=== PATIENT | female | born 1995 | race Caucasian/White ===

== ENCOUNTER 2017-03-30 15:55 | Inpatient (IN) | payer OTHER ==
[~2017-03-30] VITALS: Ht 152.4 cm; Wt 90.4 kg
[2017-03-30 16:02] VITALS: BP 128/75; PULSE 122; RESP 18; O2SAT 97
--- NOTE | 2017-03-30 18:37 | ED.REPORT ---
HPI-General Illness Date of Service Mar 30, 2017 ED Provider: Matheus Santiago DO Pt is a 21 year old female with a history of type I diabetes who presents to the ED complaining of rectal pain onset 6 days ago. She c/o associated fever and nausea. She denies vomiting and any other symptoms. Per pt, she presented to [facility] in the ED was diagnosed with pilonidal cyst for which she was prescribed Amoxicillin without relief. Nursing Notes Stated Complaint: PILANIDAL CYST, NAUSEA Chief Complaint: Skin Rash/Abscess Nursing Notes Reviewed: Yes Allergies: Coded Allergies: codeine (Verified Adverse Reaction, Severe, Nausea,Vomiting, 03/31/17) oxycodone (Verified Adverse Reaction, Intermediate, Nausea,Vomiting, ) Scheduled Amoxicillin/Clav K 875-125 mg (Augmentin 875-125 mg) 1 Each Tablet 1 TABLET PO BID Insulin Glargine,Hum.rec.anlog (Toujeo Solostar) 300 Unit/Ml (1.5 Ml) Insuln.pen Unknown Dose SQ HS Insulin Regular, Human (Afrezza) 8 Unit (60)/12 Unit (30) Cart.w.dev 1 EACH IH TIDWM Scheduled PRN Hydrocodone-Acetaminophen 5-325 mg (Hydrocodone-Acetaminophen 5-325 mg) 1 Each Tablet 1 TABLET PO Q3H PRN PRN For Pain General Time Seen by MD: 18:31 Chief Complaint Other (Pilanidol abscess) Hx Obtained From: Patient Arrived By: Walk-in Sudden in Onset?: No Onset Occurred: 6 days ago Symptom Duration: Since onset Quality: Painful Severity: Current: Moderate Severity: Maximum: Moderate Recent Healthcare: Recent doctor visit Similar Sx Previous: Yes Past Medical History Past Medical History Pilonidal abscess Type I Diabetes Mellitus Past Surgical History Denies Smoking History Current Every Day Smoker Social History Alcohol Use: "Social" Drug Use: Denies drug use Other Social History: Good social support Ambulatory Status Independent Review of Systems + abscess Full Review of Systems Constitutional: Reports: Fever Respiratory: Denies: Non-productive cough GI: Reports: Nausea, Denies: Vomiting Complete sys rev & neg: except as marked. Physical Exam Vital Signs Vital Signs Date Time Temp Pulse Resp B/P Pulse Ox O2 Delivery O2 Flow Rate FiO2 03/30/17 16:02 36.5 122 18 128/75 97 Room Air Initial VS: Reviewed Head / Eyes: Atraumatic, Normocephalic Neck: Supple, Full range of motion Abdomen / GI: Soft, Non-tender Extremities: Vascular intact, Neuro intact Skin: Warm, Dry, No cyanosis Neurologic: Alert, Oriented, Nonfocal Psychiatric: Mood/affect normal, Behavior normal General/Constitutional: Awake, Alert, Cooperative, Not toxic appearing Distress / Hydration: Positive: Distress moderate Cardiovascular: Regular rhythm, Heart sounds NL Heart Rate / Rhythm: Positive: Tachycardia RECTUM: [place] of glutial cleft bilaterall, abscess on the right side with induration. Interpretation & Diagnostics Lab Results Interpretation Result Diagram: 03/30/17 1831 03/30/17 1831 Test 03/30/17 18:31 White Blood Count 13.5th/mm3 (3.8-10.1) Red Blood Count 5.47mil/mm3 (3.90-5.20) Hemoglobin 9.9g/dL (12.0-15.6) Hematocrit 33.0% (35.0-46.0) Mean Corpuscular Volume 60.3fL (81-100) Mean Corpuscular Hemoglobin 18.1pg (27.0-35.0) Mean Corpuscular Hemoglobin Concent 30.0% (32.0-37.0) Red Cell Distribution Width 17.2% (12.3-15.4) Platelet Count 378bil/L (150-400) Neutrophils (%) (Auto) 67.7% (40-74) Lymphocytes (%) (Auto) 22.2% (14-46) Monocytes (%) (Auto) 7.1% (4-12) Eosinophils (%) (Auto) 2.4% (0-5) Basophils (%) (Auto) 0.3% (0-3) Sodium Level 133mEq/L (134-144) Potassium Level 4.2mEq/L (3.5-5.2) Chloride Level 96mEq/L (97-108) Carbon Dioxide Level 22mmol/L (18-29) Blood Urea Nitrogen 8mg/dL (6-20) Creatinine 0.42mg/dL (0.57-1.00) Estimat Glomerular Filtration Rate 278mL/min (>59) Glucose Level 284mg/dL (60-99) Lactic Acid Level 1.4mmol/L (0.4-2.0) Calcium Level 9.6mg/dL (8.5-10.1) Total Bilirubin 0.2mg/dL (0.0-1.2) Aspartate Amino Transf (AST/SGOT) 12U/L (0-50) Alanine Aminotransferase (ALT/SGPT) 13U/L (0-32) Alkaline Phosphatase 86U/L (25-150) Total Protein 7.2g/dL (6.4-8.4) Albumin 3.5g/dL (3.4-5.0) Hold Arizmendi Top Tube Received (Received) Re-Eval/Medical Decision Med Decision/Clinical Course 21-year-old insulin-dependent diabetic presents with fever and worsening gluteal cleft cellulitis. She has been on on antibiotics for 48 hours without improvement. She is found to have a leukocytosis as well as induration consistent with cellulitis of the gluteal cleft. No appreciable abscess. Due to the fact that she has been on oral antibiotics and there is nothing that I can incise and drain will admit her for IV antibiotics. Source of Hx: Old records Time of Eval: 18:31 Re-Evaluation/Progress Note: Pt rechecked. Informed pt of plan for admission. Pt understands and agrees with plan for admission. All questions were answered. Counseled Regarding: Diagnosis, Lab results, Need for admission Discharge & Departure Primary Impression: Cellulitis, gluteal Additional Impressions: Diabetes Diabetes mellitus type: type 1 Diabetes mellitus complication status: with hyperglycemia Qualified Code: E10.65 - Type 1 diabetes mellitus with hyperglycemia Failure of outpatient treatment Disposition: ADMITTED TO HOSPITAL Discharge Condition All VS Reviewed: Yes Condition: Stable Referrals: [facility] Scribe Attestation Portions of this note were transcribed by Ivanna Corcoran. I, Dr. Santiago personally performed the history, physical exam and medical decision-making; I reviewed and confirmed the accuracy of the information in the transcribed note. Signed by: Pasquale Martinez, 03/30/17 and 21:50. copies to: [facility] Matheus Santiago DO Mar 30, 2017 18:37 Ivanna Luz Mar 30, 2017 21:33
[2017-03-30 18:46] LABS: BASOPHILS % (AUTO) 0.3 % (0-3); EOSINOPHILS % (AUTO) 2.4 % (0-5); MONOCYTES % (AUTO) 7.1 % (4-12); Mean Corpuscular Hemoglobin 18.1 pg (27.0-35.0); Mean Corpuscular Volume 60.3 fL (81-100); NEUTROPHILS % (AUTO) 67.7 % (40-74); Platelet Count 378 bil/L (150-400)
[2017-03-30] MEDS ORDERED: Piperacillin-Tazo 3.375 Gm Inj 3.375 GM in Dextrose 5% Minibag Plus 50 ML IV ONE (18:50)
[2017-03-30] MEDS ORDERED: Lidocaine 1% 50 mL Inj NERVEBLOCK ONE (18:50)
[2017-03-30] MEDS: HYDROmorphone 0.5 mg/0.5 mL iSecure Syringe IVPUSH PRN ×3 (19:20→23:51)
[2017-03-30] MEDS ORDERED: Vancomycin Inj 1,750 MG in Dextrose 5% 500 ML IV ONE (19:20)
[2017-03-30 20:54] VITALS: BP 122/70; PULSE 98; RESP 14; O2SAT 97
[2017-03-30] MEDS ORDERED: Alum-Mag Hydrox-Simeth 30 mL Suspension PO PRN (23:15)
[2017-03-30] MEDS ORDERED: Polyethylene Glycol (PEG) 17 Gm Powder PO PRN (23:15)
--- NOTE | 2017-03-30 23:18 | PCM.HPMED ---
Subjective Date of Service Mar 30, 2017 Primary Provider: Admitting Physician: Piper Loomis DO Primary Care Physician: Other,Physician Attending Physician: Piper Loomis DO Admit Status: From the Emergency Department Chief Complaint: lower back pain History of Present Illness: 21yoF with past medical history of type 1 diabetes admitted due to outpatient treatment failure of lower back / pilonidal cyst cellulitis. Patient states that she began having discomfort in her superior gluteal cleft about 5 days ago and was seen in [place] for this concern. She was diagnosed with cellulitis and given amoxicillin as per patient and sent home. She has not improved but in fact worsened with fevers up to 103 yesterday 03/30. Due to concern for worsening pain and symptoms patient was brought to the ED by her mother for further evaluation. Patient's mother notes that patient has not been taking insulin regularly and has not taken it in the past few days. 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 She is afraid of needles and doesn't consistently take her insulin with blood glucoses ranging in the 400-700 range regularly with recent a1c in the 11 range. While she is aware of the issues associated with diabetes (grandmother of renal dysfunction recently 2/2 diabetes) she continues to show little concern about managing her diabetes appropriately. On admission patient is meeting sepsis criteria with heart rate of 122 and WBC > 12. Review of Systems: complete review of systems obtained. positive as per hpi otherwise negative. Allergies Uncoded Allergies: CODEIN (Allergy, Unknown, 03/30/17) Home Medications Medication rec pending. Medication list not available on admission. PMH Pilonidal abscess Type I Diabetes Mellitus Surgical History None Family History Strong family history of diabetes both type 1 and type 2 Social History Hx Alcohol Use: Yes (socially) Hx Substance Use: No Smoking Status: Current Every Day Smoker Exam Vital Signs Vital Sign - Last Date Time Temp Pulse Resp B/P Pulse Ox O2 Delivery O2 Flow Rate FiO2 03/30/17 20:54 36.8 98 14 122/70 97 Room Air Exam General: Alert, Oriented X3, Cooperative, No acute Distress Eyes: PERRLA, Scleral Anicteric Mouth: Mouth Normal, Mucous Membranes Moist/[place] Neck: Supple, no Thyromegaly, trachea central. Chest & Lungs: clear to auscultation bilateral, no wheezes, rales, rhonchi, good resp effort Cardiovascular: Normal S1, Normal S2, No Rubs/Gallops, regular rhythm, tachy ( No JVD, no peripheral edema) Pulses: Radial (present and equal), Dorsalis Pedi (present and equal) Abdomen: Soft, Non-tender, Non-distended, Normoactive bowel tones. Musculoskeletal: Unremarkable. Normal range of motion, no swollen or erythematous joints Extremities: No edema, no cyanosis, no clubbing. Skin: erythema and induration of the gluteal cleft, not obvious area of fluid collection Neurological: Grossly neurologically intact, has generalized weakness, Normal Speech, Sensation Intact Lymphatic: Lymph nodes Cervical and Axillary not palpable. Lab and Diagnostics Result Diagram: 03/30/17183003/30/171830 Assessment & Plan 21yoF with past medical history of type 1/2 diabetes admitted due to outpatient treatment failure of lower back / pilonidal cyst cellulitis. Patient does meet sepsis criteria on admission however she remains stable. Sepsis, acute, POA -HR >90, WBC >12 -source pilonidal cyst associated cellulitis -ED started piperacillin-tazobactam and vancomycin, will continue, pharmacy to dose vanc -MRSA screen Pilonidal cyst associated cellulitis, acute, POA -failure of outpatient treatment PO abx -consideration to imaging area however doesn't appear to have fluid collection, US if not improved -continue abx as above -oxycodone 5mg q4hr PRN, morphine PRN breakthrough pain, bowel regimen Hyponatremia, acute, POA -mild -continue to monitor Anemia, unknown chronicity -likely secondary to menses -continue to monitor Tobacco dependence, chronic -nicotine patch made available upon request Type 1/2 diabetes, uncontrolled, chronic, POA -hgbA1c pending, per patient's mother hgbA1c ranges around 11 -SSI, will order insulin when med rec is complete -diabetic diet -diabetes education Pain Evaluation: Adequate Pain Control GI Prophylaxis: Not indicated VTE Prophylaxis: Sub-Q Heparin (Unfractionated), Other (ambulate, TID) Resuscitation Status: CPR: Attempt Resuscitation Piper Loomis DO Mar 30, 2017 23:18
[2017-03-30] MEDS ORDERED: Glucose 40% Oral Gel 15 Gm Tube PO PRN (23:30)
--- NOTE | 2017-03-30 23:30 | NUR ---
Admit Received report from Jie MOREJON RN @ 2039,pt arrived floor at this time accompanied by mother, ind to bed ,Dx cellulitis failed by PO antibiotic,received 1 dose Vanco in ER,Admission complete, plan and orientation to room discussed, mother will spend the night. Addendum: 03/31/17 at 0411 by MARCO BUSH RN MD here to assess, per note patient meets sepsis protocol 1L NS bolus given followed continuos @100cc/hr.
[2017-03-31] VITALS (20 sets, daily range): BP systolic 102–142; BP diastolic 46–92; PULSE 78–126; RESP 16–26; O2SAT 90–98
[2017-03-31] MEDS ORDERED: 0.9% Sodium Chloride 1,000 ML IV ONE (01:00)
[2017-03-31] MEDS ORDERED: Polyethylene Glycol (PEG) 17 Gm Powder PO PRN (01:05)
[2017-03-31] MEDS ORDERED: Piperacillin-Tazo 3.375 Gm Inj 3.375 GM in Dextrose 5% Minibag Plus 50 ML IV SCH (01:10)
[2017-03-31] MEDS ORDERED: Vancomycin Dose per Pharmacist XX SCH (01:10)
[2017-03-31] MEDS ORDERED: INSU1CAR IH (01:36)
[2017-03-31] MEDS ORDERED: INSU300I SQ (01:36)
[2017-03-31] MEDS ORDERED: HYDR-4003 PO (01:37)
[2017-03-31] MEDS ORDERED: AMOX-366 PO (01:37)
[2017-03-31] MEDS: 0.9% Sodium Chloride 1,000 ML IV SCH ×6 (02:14→20:55)
[2017-03-31] MEDS: Piperacillin-Tazo 3.375 Gm Inj 3.375 GM in Dextrose 5% Minibag Plus 50 ML IV SCH ×3 (03:10→22:51)
[2017-03-31] MEDS ORDERED: Vancomycin Inj 750 MG in 0.9% Sodium Chloride 250 ML IV SCH (04:00)
--- NOTE | 2017-03-31 04:15 | PCM.CONPHA ---
Subjective Date of Service: Mar 31, 2017 Requesting Provider: Piper Loomis DO lower back pain History of Present Illness Sepsis, 2/2 pilonidal abscess/cellulitis, failed outpatient antibiotic Reason for Pharmacy Consult: Vancomycin Dosing Objective Assessment/Plan Assessment/Plan A/ - 21 y/o female patient admitted in for sepsis, secondary to pilonidal abscess/cellulitis which failed outpatient antibiotic. Vancomycin ordered for empirical coverage - Afebrile, WBC: 13.5, blood cultures and MRSA screen: pending - In ED, received loading dose Vancomycin 1750mg, Zosyn also initiated and continued - Wt: 84.6kg, ht: 152.4cm, BMI: 36.4kg/m2, SCr: 0.45 mg/dL, estimated clearance >125ml/min, Vd~51L, t1/2~6hrs P/ - Give Vancomycin 750mg iv q6h. Trough level ordered before 4th dose @1530 today. This regimen would produce a trough around 15 Pharmacy will continue to follow and make necessary adjustment Thank you for consulting clinical pharmacy in the care of this patient Colleen Kelly Mar 31, 2017 04:15 Test 03/30/17 18:31 White Blood Count 13.5th/mm3 (3.8-10.1) Red Blood Count 5.47mil/mm3 (3.90-5.20) Hemoglobin 9.9g/dL (12.0-15.6) Hematocrit 33.0% (35.0-46.0) Mean Corpuscular Volume 60.3fL (81-100) Mean Corpuscular Hemoglobin 18.1pg (27.0-35.0) Mean Corpuscular Hemoglobin Concent 30.0% (32.0-37.0) Red Cell Distribution Width 17.2% (12.3-15.4) Platelet Count 378bil/L (150-400) Neutrophils (%) (Auto) 67.7% (40-74) Lymphocytes (%) (Auto) 22.2% (14-46) Monocytes (%) (Auto) 7.1% (4-12) Eosinophils (%) (Auto) 2.4% (0-5) Basophils (%) (Auto) 0.3% (0-3) Sodium Level 133mEq/L (134-144) Potassium Level 4.2mEq/L (3.5-5.2) Chloride Level 96mEq/L (97-108) Carbon Dioxide Level 22mmol/L (18-29) Blood Urea Nitrogen 8mg/dL (6-20) Creatinine 0.42mg/dL (0.57-1.00) Estimat Glomerular Filtration Rate 278mL/min (>59) Glucose Level 284mg/dL (60-99) Lactic Acid Level 1.4mmol/L (0.4-2.0) Calcium Level 9.6mg/dL (8.5-10.1) Total Bilirubin 0.2mg/dL (0.0-1.2) Aspartate Amino Transf (AST/SGOT) 12U/L (0-50) Alanine Aminotransferase (ALT/SGPT) 13U/L (0-32) Alkaline Phosphatase 86U/L (25-150) Total Protein 7.2g/dL (6.4-8.4) Albumin 3.5g/dL (3.4-5.0) Hold Arizmendi Top Tube Received (Received) Colleen Jain Mar 31, 2017 04:15 Received (Received) Colleen Jain Mar 31, 2017 04:15
[2017-03-31] MEDS: Ondansetron 2 mg/mL 2 mL Inj IVPUSH PRN ×4 (04:55→12:05)
[2017-03-31 07:26] LABS: BASOPHILS % (AUTO) 0.2 % (0-3); MONOCYTES % (AUTO) 6.6 % (4-12); Mean Corpuscular Hemoglobin 18.3 pg (27.0-35.0); Mean Corpuscular Volume 60.6 fL (81-100); NEUTROPHILS % (AUTO) 81.1 % (40-74); Platelet Count 343 bil/L (150-400)
[2017-03-31] MEDS: Insulin LISPRO 300 Unit/3 mL Inj SUBQ SCH ×4 (07:38→23:09)
[2017-03-31] MEDS ORDERED: Insulin GLARgine 100 Unit/mL Syringe SUBQ ONE (07:50)
--- NOTE | 2017-03-31 08:20 | NUR ---
Social Work: Screening Data: Pt is a 21 y/o female admitted for cellulitis, leukocytosis, diabetes. Pt's PCP is not listed. Pt's insurance is [employer] EMR reviewed. Readmit score is 2, low. Likely no d/c planning needs. [employer]PER [employer]ER will continue to follow for possible d/c planning needs. Assessment: Pt who is independent at baseline. Plan: Pt will d/c home via POV when medically stable. Likely no d/c planning needs. [employer] will continue to follow for possible d/c planning needs. ISAAC Brock
[2017-03-31] MEDS: HYDROmorphone 1 mg/mL Inj IVPUSH PRN ×3 (08:54→23:54)
--- NOTE | 2017-03-31 10:14 | NUR ---
Morning assessment/transfer of care Pt nauseas and in pain 8/10 this morning. Vitals show elevated HR and temp of 120 BPM and 37.9 C. MD present in the room and 1L bolus ordered and administered. Transfer orders to PCC received. 1MG dilaudid and 4 mg ondansetron given which brought pts. pain down to 4/10 and helped her nausea. PO tylenol brought temp down to 36.8. Dr. Chris in the room at 0930 to consult, followed by infectious disease. Transferred to [facility] at 0950 in stable condition. Report given to Fransisco Chowdary RN. prior to transfer.
[2017-03-31] MEDS ORDERED: Propofol 10,000 mCg/mL 20 mL Inj ONE (10:20)
[2017-03-31] MEDS ORDERED: Dexamethasone 4 mg/mL Inj ONE (10:20)
[2017-03-31] MEDS ORDERED: Ondansetron 2 mg/mL 2 mL Inj ONE (10:20)
[2017-03-31] MEDS ORDERED: fentaNYL-PF 50 mCg/mL 2 mL Inj ONE (10:20)
--- NOTE | 2017-03-31 11:02 | CONS ---
[address] [address] CONSULTATION REPORT PATIENT: JENN COX : 1995 MR#: [id number] ADMIT: 03/30/2017 JOB ID: [id number] DATE OF SERVICE: 03/31/2017 REASON FOR CONSULTATION: Pilonidal cyst in a type [address] Coreas for this timely consult, which occurred on March 31, 2017. HISTORY OF PRESENT ILLNESS: The patient is a 21-year-old, white female, who was diagnosed with type 1 diabetes a couple years ago. She has not been super compliant with her diabetes and tends to have variable control. She has had 2 episodes of hidradenitis in the groin over the past few years, but none recently. On this occasion she was admitted because of a 5-day history of pain in the upper gluteal cleft region. This pain has been progressive and debilitating. She has not vomiting or diarrhea, but she has had some nausea, fevers, chills, and malaise. No significant headache. No visual change. No sore throat. No pulmonary complaints. No urinary symptoms. PAST MEDICAL HISTORY: 1. Type 1 diabetes x2 years. 2. Hidradenitis on two occasions in the past. 3. Ongoing cigarette smoking. SOCIAL HISTORY: The patient is a recent graduate of [employer] and also has completed most of an associates degree from [employer]. She does smoke cigarettes, and she was strongly advised to quit at this time. She does not drink alcohol. FAMILY HISTORY: Negative for tuberculosis, but her grandmother does have diabetes. REVIEW OF SYSTEMS: The patient has no significant headache or visual change. No sore throat. No cough, chest pain. She does have some nausea. No vomiting. No diarrhea. No dysuria, urgency, or frequency. No more of the hidradenitis in the groin. No complaints of joint or skin problems. No neurologic symptoms.Remainder of the ROS negative PHYSICAL EXAMINATION: Reveals an afebrile woman, currently 37.9 but she was 38.8 at midnight and recall that she was admitted just yesterday afternoon, so the 38.8 was her highest temperature. Pulse is currently 120, respiratory rate 16, blood pressure 139/92. She is saturating well on room air. She is awake, alert, no acute distress and appears perhaps a bit anxious. Examination of the head: No trauma. Eyes without conjunctivitis. Oral cavity: No thrush or hairy leukoplakia. Neck is supple without adenopathy. Lungs clear. Cardiac tones: No murmur. Abdomen is soft, nontender, slightly obese. No masses noted. No suprapubic fullness. No evidence of hidradenitis at this point. Extremities are without synovitis. No skin rash. Neurologically she is intact. On the patient's backside she has tender erythematous inflammatory area along the upper gluteal cleft, which is slightly bigger on the right than the left and extends 2-3 cm into the buttocks arising from the gluteal cleft on both sides. There is no purulent drainage at this point, and the inflammatory mass is basically closed at this point, but clearly quite tender and warm. No other notable abnormalities on physical. LABORATORIES: Include white blood count yesterday in the emergency department 13, now 16. Platelets 343. Hematocrit 32. Differential white count with mild left shift today. Creatinine 1.34 up from 0.42 yesterday which is a striking increase. Glucose 286. Hemoglobin A1c is not seen. Lactic acid 1.4. LFTs normal. Procalcitonin 0.09 which is functionally normal. Micro studies include negative blood cultures. A MRSA screen is pending and would be very helpful here and was just sent down about an hour ago. IMPRESSION: This is a young woman with type 1 diabetes who is a cigarette smoker and who presents with a pilonidal cyst. While not strictly associated with hidradenitis this probably represents some continuum on the same process. At this point, we have discussed the case in person with Dr. Erin Chris of Surgery who plans to get an ultrasound and slightly better control the blood sugar before she takes her to the operating room later today. Dr. Chris or one of her colleagues will be doing this incision and drainage. The patient was started on vancomycin and Zosyn, which is a nephrotoxic regimen. The patient has no history of methicillin resistant Staphylococcus aureus, and I do not think at this point that the vancomycin makes sense unless perhaps her methicillin resistant Staphylococcus aureus screen comes back positive. The main treatment for this infection will be incision and drainage and broad-spectrum antibiotics directed at enteric gram-negative rods and anaerobes. Methicillin resistant Staphylococcus aureus would not be typical player in the source of infection, and I think it is contributing to the synergistic toxicity when combined with the Zosyn. RECOMMENDATIONS: 1. Will discontinue the vancomycin. 2. Will renally adjust the Zosyn if need be as we go forward. 3. We await the incision, drainage, and cultures to be performed later today. 4. The patient was advised to quit smoking. MTDD
[2017-03-31] MEDS ORDERED: Insulin Human REGular Inj 100 UNIT in 0.9% Sodium Chloride-Pha MIX 100 ML IV ONE (11:40)
[2017-03-31] MEDS: HYDROcodone-APAP 5-325 mg Tablet PO PRN (12:05)
[2017-03-31 12:50] LABS: BASOPHILS % (AUTO) 0.2 % (0-3); EOSINOPHILS % (AUTO) 0.7 % (0-5); MONOCYTES % (AUTO) 8.9 % (4-12); Mean Corpuscular Hemoglobin 18.5 pg (27.0-35.0); Mean Corpuscular Volume 60.6 fL (81-100); NEUTROPHILS % (AUTO) 76.6 % (40-74); Platelet Count 311 bil/L (150-400)
--- NOTE | 2017-03-31 12:57 | PCM.PNMED ---
Subjective Date of Service Mar 31, 2017 Subjective pt was in distress due to pain, sepsis, noted febrile episode business consultant, tachycardic, labs showed persistent leukocytosis, developing LIN, increasing AG, elevated [id number] with probable DKA Consulted , ordered CT with contrast but switched to US given LIN tentative plan for drainage by US by IR or surgery today kept in NPO given worsening clinical picture, moved to [facility] for close obs, ordered 2liters of NS Exam Vital Signs Vital Sign - Last Date Time Temp Pulse Resp B/P Pulse Ox O2 Delivery O2 Flow Rate FiO2 03/31/17 12:38 115 03/31/17 10:25 36.4 18 129/88 90 Room Air Intake and Output 03/30/17 03/30/17 03/31/17 Cumulative From/Thru 15:00 23:00 07:00 03/30/17 16:02 - 03/31/17 06:16 Intake Total 550 ml 2011 ml 2561 ml Output Total 250 ml 250 ml Balance 550 ml 1761 ml 2311 ml Intake Oral 360 ml 360 ml IV Total 550 ml 1651 ml 2201 ml Output Urine Total 250 ml 250 ml Exam young obese female acute distress due to pain, looked ill no JVD, MMM, no LAD regular tachy, nl s1, s2 no mrg CTAB, no w,c S,ND,NT,normoactive BS+ warm, no edema, pulses 2/2 severe tender, erythema,swelling around intergluteal cleft bilaterally below sacrum, no obvious opening/fluctence IVs and Medications Medications Reviewed: Medications were reviewed in detail Lab and Diagnostics Result Diagram: 03/31/1730 03/31/17 0630 Assessment & Plan 21yoF with past medical history of type 1/2 diabetes admitted due to outpatient treatment failure of lower back / pilonidal cyst cellulitis. Patient does meet sepsis criteria on admission however she remains stable. acute,active Sepsis, SIRS+HR >90, WBC >12, fever, RR, source: probable pilonidal cyst associated cellulitis, -failure of outpatient Augmentin for 5D -appreciate for surgical drainage, awaits US if possible to drain by IR -ED started piperacillin-tazobactam and vancomycin, continue zosyn, stopped vancomycin 03/31 per ID, MRSA neg, no risks of MRSA infection. -appreciate ID follow up for abx -s/p 2-3liters bolus, will continue 100cc/hr -oxycodone 5mg q4hr PRN, morphine PRN breakthrough pain, bowel regimen -awaits BCX AG metabolic acidosis, POA, likely lactate or ketosis with [id number]. -started DKA protocol in PCC, likely to stop shortly -will repeat labs q4-6h Type 1DM, hyperglycemia, probable DKA, POA, noncompliant, reported A1c11 -manage per DKA protocol as above, -was given 5units of lantus this AM, -reportedly pt is afraid of needing, not complaint to pre-meal insulin, try to minimize needling with lantus in house, -diabetic diet, diabetes education chronic, stable Anemia, unknown chronicity, likely secondary to menses, will need iron on d/c, get iron panel once more stable Tobacco dependence, chronic, nicotine patch made available upon request dispo: likely 3-4more days, home diet:NPO for now GI Prophylaxis: Not indicated VTE Prophylaxis: Sub-Q Heparin (Unfractionated), Other (ambulate, TID) Resuscitation Status: CPR: Attempt Resuscitation Time spent 35min Mile Coreas MD Mar 31, 2017 12:57
[2017-03-31 13:21] LABS: Magnesium 1.4 mg/dL (1.6-2.6); Phosphorus 5.4 mg/dL (2.5-4.9)
--- NOTE | 2017-03-31 13:59 | DRSVH ---
PROCEDURE: US EXTREMITY SONOGRAM LIMITED ([id number]) INDICATIONS: possible abscess on proximal gluteal cleft TECHNIQUE: Real-time scanning was performed of the midline gluteal cleft, with image documentation. COMPARISON: None. FINDINGS: Complex, multiloculated mass is seen corresponding to the palpable abnormality involving th e gluteal cleft measuring roughly 2.5 x 2.2 cm. Doppler assessment demonstrates some internal flow. IMPRESSION: Complex, multiloculated cystic mass corresponding to the palpable abnormality. Different ial diagnosis would include inflammatory mass versus neoplastic mass given there is internal vascular ity. Recommend clinical correlation. No drainable fluid collection. Dictated by: Tico PERSON Interpreted: Gume Small MD on 03/31/2017 at 13:56 Transcribed by: TARAH on 03/31/2017 at 13:59 Approved by: Gume Small M.D. on 03/31/2017 at 16:27
[2017-03-31] MEDS ORDERED: Vancomycin Serum Trough XX ONE (15:30)
--- NOTE | 2017-03-31 16:22 | CONS ---
[address] [address] CONSULTATION REPORT PATIENT: JENN COX : 1995 MR#: [id number] ADMIT: 03/30/2017 JOB ID: [id number] SURGICAL CONSULTATION: DATE OF SERVICE: 03/31/2017 CHIEF COMPLAINT: This is a 21-year-old female with pain and swelling of the superior gluteal cleft. This consultation is requested by Mile Coreas MD HISTORY OF PRESENT ILLNESS: This is a 21-year-old female with a history of type 1 diabetes, who reports hemoglobin A1c of 11, who presented to the hospital with discomfort at the superior gluteal cleft resulting in worsening pain and fevers to 103 degrees Fahrenheit. She was admitted to the hospital and placed on antibiotics. Because there was no erythema or clear abscess on examination, a CT scan was ordered, but was canceled due to creatinine of 1.34. White blood cell count on admission was 13.5 and fletcher to 15.6 overnight. She has been tachycardic and febrile. Because of all of this, a Surgery consultation was requested. PAST MEDICAL HISTORY: Type 1 diabetes. A self reported hemoglobin A1c is 11. PAST SURGICAL HISTORY: None. MEDICATIONS: Insulin, amoxicillin x3 days, and Vicodin x3 days. ALLERGIES: 1. CODEINE. 2. PENICILLIN causes nausea. FAMILY HISTORY: Her maternal great-grandmother had colon cancer. There is type 2 diabetes, on both sides of her family. Her maternal grandmother had a heart attack. SOCIAL HISTORY: She smokes 10 cigarettes per day, drinks alcohol on a social basis. She does not work or go to school. REVIEW OF SYSTEMS: Eleven point review of systems is positive for fever, nausea, pain, and is otherwise negative. PHYSICAL EXAMINATION: VITAL SIGNS: Temperature 36.4, heart rate 109, blood pressure 129/88, respiratory rate of 18, saturation 90% on room air. GENERAL: Awake and alert, mild distress. HEAD: Normocephalic. NECK: Supple. CARDIAC: Regular rhythm, tachycardia, no murmurs, rubs, or gallops. RESPIRATORY: Clear to auscultation bilaterally. ABDOMEN: Soft. BUTTOCKS: At the superior aspect of the gluteal cleft is a bilateral region of pain with mild induration. Fluctuance is not appreciated. EXTREMITIES: No edema. PSYCHIATRIC: Normal cognition and judgment. LABORATORY DATA: White blood cell count is 15.6, hematocrit 31.8, platelets 343. Comprehensive metabolic panel is within normal limits with the exception of a glucose of 286 and creatinine of 1.34. ASSESSMENT: A 21-year-old woman with likely pilonidal abscess, although purulent collection is not appreciated on physical exam. PLAN: When I originally saw this patient several hours ago, I recommended an ultrasound, which showed a loculated fluid collection. Therefore, she has been scheduled for incision and drainage of the pilonidal abscess on an urgent basis in the operating room. I recommend institution of strict glucose management with all blood sugars to be goal of less than 180. Continue antibiotics per the primary team. Cultures will be sent of the purulent fluid from the OR. A Wound Care consult will be anticipated postoperatively.
[2017-03-31] MEDS ORDERED: Potassium Chloride 20 mEq SR Tablet PO ONE (17:10)
[2017-03-31] MEDS ORDERED: Magnesium Sulf 2 Gm/50mL Water 2 GM in IV Premix 1 EACH IV ONE (17:10)
[2017-03-31 18:59] LABS: APPEARANCE,URINE CLEAR (CLEAR,HAZY); COLOR,URINE YELLOW (YELLOW)
[2017-03-31 19:00] LABS: OCCULT BLOOD,URINE NEGATIVE (NEGATIVE); UROBILINOGEN,URINE NORMAL (NORMAL)
[2017-03-31] MEDS ORDERED: Bupivacaine-MPF 0.25%/EPI 30 mL Inj INFILTRATE ONE (19:24)
--- NOTE | 2017-03-31 19:24 | NUR ---
Transfer to PCC/Insulin gtt/pain Pt arrived on PCC at 09:50, report received from WILIAM Evans. Second bolus started, Only one IV site available, so after discussion with pharmacy, zosyn given over 15 min and then Insulin gtt started. IV therapy contacted to start second line in left arm. Right arm is edematous possibly from existing IV, no overt signs of infiltration, arm warm and IV site warm. Cardiac: Pt reported one brief episode of chest pressure this AM. Resolved on its own. Tele SR 110-120. Edema in upper extremeties, R>L, pt reports her hands are swollen. Resp: Pt reports some SOB with activity and slumped in bed, relieved with positioning. GI/: decreased urine output today, two boluses given since this AM. only 400ml out before going for surgery. Pt had some mild nausea this shift, 4 mg zofran given once with good effect. Neuro: A&O MCKEON. pain regiment has been effective to manage pt's pain.
[2017-03-31] MEDS ORDERED: Lactated Ringer's 500 ML IV PRN (20:07)
[2017-03-31] MEDS ORDERED: Lactated Ringer's 1,000 ML IV SCH (20:07)
[2017-03-31] MEDS ORDERED: MetoCLOpramide 5 mg/mL 2 mL Inj IVPUSH PRN (20:10)
[2017-03-31] MEDS ORDERED: Phenylephrine 10,000 mCg/mL Inj IVPUSH PRN (20:10)
[2017-03-31] MEDS ORDERED: Epinephrine Racemic 2.25% 0.5 mL Inhalation Solution NEB PRN (20:10)
[2017-03-31] MEDS ORDERED: EPHEDrine Sulfate 50 mg/mL Inj IVPUSH PRN (20:10)
[2017-03-31] MEDS ORDERED: Ondansetron 2 mg/mL 2 mL Inj IVPUSH PRN (20:10)
[2017-03-31] MEDS ORDERED: HYDROmorphone 1 mg/mL Inj IVPUSH PRN (20:10)
[2017-03-31] MEDS ORDERED: Dexamethasone 4 mg/mL Inj IVPUSH PRN (20:10)
[2017-03-31] MEDS ORDERED: Albuterol 2.5 mg/3 mL Inhalation Solution NEB PRN (20:10)
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
--- NOTE | 2017-03-31 20:13 | PCM.ANEP1 ---
Post Anesthesia PACU Phase 1 Assessment Vital Signs Vital Signs Date Time Temp Pulse Resp B/P Pulse Ox O2 Delivery O2 Flow Rate FiO2 03/31/17 16:43 38.3 115 26 122/80 93 Room Air 03/31/17 12:38 115 Anesthetic Administered: GA Level of Alertness: Sleepy, easy to arouse Pain: No Pain Scale Score: 9 Nausea or Vomiting: No CV Function & Hydration Stable: Yes Airway Device: Oxygen Delivery: Nasal Cannula Lungs: Clear to Auscultation PACU Phase 2 Assessment Complications: No Follow up Care: No Patient Instructions Provided: Yes Willie Toscano MD Mar 31, 2017 20:13
--- NOTE | 2017-03-31 20:20 | OP ---
[address] [address] OPERATIVE REPORT PATIENT: JENN COX : 1995 MR#: [id number] ADMIT: 03/30/2017 JOB ID: [id number] DATE OF SURGERY: 03/31/2017 PREOPERATIVE DIAGNOSIS(ES): Pilonidal abscess. POSTOPERATIVE DIAGNOSIS(ES): Pilonidal abscess. PROCEDURE PERFORMED: Incision and drainage of pilonidal abscess. SURGEON: Erin Chris MD. VALUE ANALYST: None. HISTORY OF PRESENT ILLNESS: This is a 21-year-old woman with type 1 diabetes with recent hemoglobin A1c documented to be 11, who presented with pain and swelling at the posterior aspect of her gluteal cleft associated with leukocytosis, tachycardia, and acute renal failure. She was admitted to the hospital and pilonidal abscess incision and drainage was scheduled. FINDINGS: Abscess cavity measured 5 cm x 5 cm x 4 cm in depth. It was located at the superior aspect of the gluteal cleft. Purulent fluid sent for culture. DESCRIPTION OF PROCEDURE: The patient was brought to the operating room and placed in supine position. General anesthesia was induced. SCDs were placed. She was repositioned into prone chapincito-knife. The operative field was prepped and draped in sterile fashion. A pause was performed to confirm the correct patient, procedure, and site. A needle was used to aspirate the area was greatest fluctuance, just to the right of the gluteal cleft. There was significant purulent fluid, and this was sent for culture. A vertical incision was made 2 cm to the right of the gluteal cleft at its superior aspect. There was copious purulent drainage. It was gently debrided mechanically and irrigation was performed. Mechanical debridement was also performed with scissors and electrocautery to remove tissue. Extensive search was performed to find a tuft of hair, but none was identified. The abscess cavity extended to the contralateral side. To avoid a wound that extended across this side and to preserve skin, a counter incision was made 2 cm to the right of the gluteal cleft and a [place] drain was threaded through this. A small amount of skin was removed parallel to the left-sided vertical incision to facilitate future wound care. Moist Kerlix was placed. An ABD dressing was placed. The patient was awakened from general anesthesia and taken to the postop care unit in good condition. ESTIMATED BLOOD LOSS: 2 mL. SPECIMENS: Purulent fluid, sent for culture. COMPLICATIONS: None.
[2017-03-31] MEDS: fentaNYL-PF 50 mCg/mL 2 mL Inj IVPUSH PRN ×3 (20:32→21:00)
[2017-03-31] MEDS ORDERED: 0.9% Sodium Chloride 250 ML ONE (22:47)
[2017-03-31 22:52] LABS: Magnesium 1.5 mg/dL (1.6-2.6)
--- NOTE | 2017-03-31 23:01 | NUR ---
postop note Back to [facility] room 2030 at 2115. Family members, including mom, here with patient. Pain was 4/10 on arrival, but she rated her pain 9/10 after moving to bed from stretcher. Had just received Fentanyl in PACU. Has been sleeping since arrival and declined further pain meds so far. SCD's on. Placed on continuous pulse oximetry, as she keeps falling asleep. Sats 96% on 3 liters nasal cannula. Taking sips of clear liquids without c/o nausea. Plan of care discussed with patient and with family and questions answered. Has adamantly declined having a catheter placed. Tracy is spending the night. Addendum: 03/31/17 at 2309 by ALINA BRODERICK RN Insulin drip infusing upon arrival.
[2017-04-01] VITALS (8 sets, daily range): BP systolic 100–118; BP diastolic 62–81; PULSE 87–102; RESP 16–22; O2SAT 93–96
[2017-04-01] MEDS ORDERED: Magnesium Sulf 2 Gm/50mL Water 2 GM in IV Premix 1 EACH IV ONE (01:05)
[2017-04-01] MEDS: HYDROmorphone 1 mg/mL Inj IVPUSH PRN ×5 (03:52→20:02)
[2017-04-01] MEDS: Piperacillin-Tazo 3.375 Gm Inj 3.375 GM in Dextrose 5% Minibag Plus 50 ML IV SCH ×2 (03:54→16:18)
[2017-04-01 03:59] LABS: BASOPHILS % (AUTO) 0.2 % (0-3); EOSINOPHILS % (AUTO) 0.9 % (0-5); MONOCYTES % (AUTO) 7.5 % (4-12); Mean Corpuscular Hemoglobin 18.2 pg (27.0-35.0); Mean Corpuscular Volume 61.3 fL (81-100); NEUTROPHILS % (AUTO) 75.1 % (40-74); Platelet Count 314 bil/L (150-400)
--- NOTE | 2017-04-01 03:59 | NUR ---
Pain Pt rates pain level 7-9/10, although appears to be resting comfortably and has been sleeping much of the night. Medicated with IV Dilaudid and states this is helpful. Denies nausea and has been taking clear liquids without problems. On insulin drip and sugars have been 150-160's. UP to commode to void clear yellow urine. Fiance at bedside.
[2017-04-01 04:40] LABS: Magnesium 1.9 mg/dL (1.6-2.6)
[2017-04-01] MEDS: 0.9% Sodium Chloride 1,000 ML IV SCH ×2 (06:42→20:13)
[2017-04-01] MEDS ORDERED: 0.9% Sodium Chloride 1,000 ML IV ONE (07:25)
[2017-04-01] MEDS: HYDROcodone-APAP 5-325 mg Tablet PO PRN ×4 (07:45→22:52)
--- NOTE | 2017-04-01 07:50 | PCM.PNSURG ---
Subjective Visit Information: Reason for Visit Cellulitis, Leukocytosis, Diabetes, Failes Po Anti Surgery/Surgery Date Post-Op Day # Date of Admission: Mar 30, 2017 at 20:10 Hospital Day # Subjective: s/p I&D last night of pilonidal abscess. Cr 3.5 today. UOP >1L/24h. WBC 18. Pressure at gluteal cleft improved. No purulence in wound base today. Objective Vital Sign- Last 8 Hours Date Time Temp Pulse Resp B/P Pulse Ox O2 Delivery O2 Flow Rate FiO2 04/01/17 03:48 37.3 96 18 101/62 96 Nasal Cannula 2.00 04/01/17 03:46 102 04/01/17 00:12 37.1 101 18 109/74 94 Nasal Cannula 2.00 Intake and Output- Last 8 Hour 04/01/17 Cumulative From/Thru 07:00 03/30/17 16:02 - 04/01/17 06:46 Intake Total 1133 ml 9303 ml Output Total 550 ml 1700 ml Balance 583 ml 7603 ml Intake Oral 240 ml 600 ml IV Total 893 ml 8703 ml Output Urine Total 550 ml 1700 ml # Bowel Movements 0 0 General: Alert, Oriented X3, Cooperative Extremities: Other (wound base is clean without purulent fluid. sy is in place. ) Result Diagram: 04/01/17 0350 04/01/17 0350 Assessment & Plan Impression POD1 pilonidal abscess. Problems: Plan Nephrology cosult (ordered) 1L NS bolus (ordered) Strict BG management, all sugars <180 please OK to advance diet per primary team Wound care consult (ordered) VTE Prophylaxis: Sub-Q Heparin (Unfractionated), Other (ambulate, TID) Resuscitation Status: CPR: Attempt Resuscitation Erin Chris MD Apr 01, 2017 07:50
[2017-04-01] MEDS: Insulin LISPRO 300 Unit/3 mL Inj SUBQ SCH ×4 (08:00→21:23)
[2017-04-01 09:41] LABS: APPEARANCE,URINE HAZY (CLEAR,HAZY); COLOR,URINE STRAW (YELLOW); OCCULT BLOOD,URINE TRACE (NEGATIVE); PH,URINE 5.5 (5.0-8.0); UROBILINOGEN,URINE NORMAL (NORMAL)
--- NOTE | 2017-04-01 09:50 | PROG NOTE ---
[address] [address] PROGRESS NOTE PATIENT: JENN COX : 1995 MR#: [id number] ADMIT: 03/30/2017 JOB ID: [id number] DATE: 04/01/2017 REASON FOR FOLLOW UP: Pilonidal abscess one day status post incision and drainage. INTERVAL HISTORY: Over the past 24 hours, the patient has undergone incision and drainage of the abscess. I discussed this procedure in person with Dr. Chris this morning. A moderate amount of pus was found and drained and we are awaiting the cultures from that. The patient for her part reports this morning sort of mild pain at the site of the incision and drainage area which was exacerbated by an exam early this morning by the surgeon. The patient has no current fevers. Chills or sweats. No sore throat. No significant cough nor any abdominal pain. She had a little bit of juice for breakfast so far. PHYSICAL EXAMINATION: Reveals an afebrile woman. Temp 37.2, pulse 99, respiratory rate 18, blood pressure 109/72. Saturating well; though, she is using 2 L nasal prongs. She is alert and oriented. She has an IV in each arm, a peripheral IV, and these appear uninfected. Oral cavity negative. Lungs relatively clear. Abdomen benign. The I and D site is dressed and we did not examine it as that seems to provoke pain. LABORATORY DATA: Lab studies reveal a white count which has jumped to 18,000, still with minimal left shift 75% segs. Creatinine, unfortunately, has gone from 0.42 on admission just two days ago to 3.51 today indicating almost complete renal failure. Her liver function tests remain normal. Procalcitonin 0.37. Hemoglobin A1c is back at 10.1. Vancomycin random level from this morning is pending. Urinalysis had no white cells. I discussed the cultures of the abscess with the micro lab. So far, no growth. Though there are heavy polys and moderate gram positive cocci on the Gram stain. IMPRESSION: This is a 21-year-old woman with diabetes for the past 2-3 years which has been poorly controlled. She presented with a pilonidal cyst and was started on vancomycin and Zosyn. The vancomycin was stopped quickly after initiation, but she did receive about 2-1/2 g in loading doses. Since that time, she has undergone I and D with drainage of the purulent material and overall her clinical situation is stable; though, her creatinine has increased from 0.4 to 3.5 just over night indicating the creatinine clearance close to zero. RECOMMENDATIONS: 1. We have renally adjusted the Zosyn dose. We await the cultures. 2. We will check a random vancomycin level which I suspect will be quite high. 3. This case discussed this morning with Surgery.
--- NOTE | 2017-04-01 12:09 | NUR ---
Wound Note 21 yo female admitted to [facility] with pilonidal cyst s/p incision and drainage by Dr Chris last evening 03/31. PMX significant for diabetes Type1 poorly controlled and obesity. Presents now lying in bed with family present tearful at the prospect of rolling onto her side so I can visualize wound. Apparently dressing was changed by Dr Chris this am, I see that sy drain is in place and that drainage is moderate and sero sanquinious in nature. Spoke with patients mother who is willing to learn how to perform dressing changes, discussed wound healing by secondary intent and wound hygiene. Recommend topical 4% lidocaine to make dressing changes as comfortable as possible for this patient. Will change dressing in am tomorrow.
[2017-04-01] MEDS ORDERED: Dextrose 10% 250 ML IV PRN (14:00)
[2017-04-01] MEDS ORDERED: Glucose 40% Oral Gel 15 Gm Tube PO PRN (14:00)
--- NOTE | 2017-04-01 17:45 | CONS ---
[address] [address] CONSULTATION REPORT PATIENT: JENN COX : 1995 MR#: [id number] ADMIT: 03/30/2017 JOB ID: [id number] DATE OF SERVICE: REQUESTING PHYSICIAN: Erin Chris MD REASON FOR CONSULTATION: Management of abnormal kidney function test. CHIEF COMPLAINT: Discomfort at the superior gluteal cleft. HISTORY OF PRESENT ILLNESS: This is a 21-year-old lady with significant past medical history of insulin-dependent diabetes who presented to the hospital with a complaint of fever and discomfort at the superior gluteal cleft. The symptoms started roughly five days prior to the admission. She complains of fever, chills, nausea. She reports no history of diarrhea. Apparently the patient was found to have abscess on that area and she underwent I and D by Dr. Chris last night. The abscess cavity measured 5 x 5 x4 cm, which was located at the superior aspect of the gluteal cleft. Culture was sent. The patient initially received vancomycin and Zosyn, and later on vancomycin was discontinued due to worsening kidney function. Her initial serum creatinine was 0.42 on March 30 and today fletcher to 3.51. The patient did not receive IV contrast. Her blood pressure has been stable, but on the low side. She has been tachycardic as well. Her highest heart rate recorded was 126, current heart rate is 87. She received IV fluid overnight. She reported that prior to the hospitalization she took four doses of 200 mg of ibuprofen for the pain. The patient was diagnosed with insulin-dependent diabetes at age of 19. The patient is known to be poorly compliant with her medication and diet. She is also a smoker; she has smoked half a pack every day for a year also. She denies history of diabetic retinopathy or neuropathy. The patient is not aware of having kidney disease. The patient takes Zantac for seasonal allergies. She does not take any NSAIDs on a regular basis except four doses that she took prior to the hospitalization. PAST MEDICAL HISTORY: 1. Insulin-dependent diabetes diagnosed at age 19. 2. Tobacco abuse. 3. History of seasonal allergies. 4. History of exercise-induced asthma. 5. Hidradenitis. PAST SURGICAL HISTORY: None. FAMILY HISTORY: Positive for diabetes in the family including her mom, grandparents, and her half-sibling. SOCIAL HISTORY: The patient does not drink alcohol. She has smoked half a pack of cigarettes every day for a year. REVIEW OF SYSTEMS: Fourteen-point review of systems was performed. HOME MEDICATIONS: Lantus and inhaled insulin. PHYSICAL EXAMINATION: Vitals: Temperature 36.6, pulse 87, respiratory rate 20, blood pressure 100/67, O2 sat 96% on nasal cannula 2 L. General appearance: Awake, alert. Oriented x3. In mild distress, in pain. HEENT: No pallor. No jaundice. No JVD. No lymphadenopathy. No thyroid enlargement. PERRLA. Atraumatic. Moist mucous membranes. Heart: Regular rhythm. Normal S1, S2. No murmurs, rubs, or gallops. Lungs: Clear to auscultation bilaterally. No wheezing. No rhonchi. Abdomen: Soft. Active bowel sounds. Nontender, nondistended. Extremity: Trace edema on the lower and upper extremity. No skin rash. LABORATORY: Sodium 136, potassium 4.2, chloride 103, bicarb 17, BUN 22, creatinine 3.51, glucose 152, calcium 7.7, phosphorus 5.0, magnesium 1.9. Albumin 2.8. ASSESSMENT: 1. Acute kidney injury likely due to acute tubular necrosis in the setting of ongoing infection, also could be due to vancomycin-induced acute tubular necrosis (ATN). 2. Abscess status post incision and drainage (ID). 3. Insulin-dependent diabetes, poorly controlled. PLAN: Currently her blood pressure has been stable. She appears to be slightly hypervolemic. I will decrease her normal saline down to 60 mL/hour. We will continue supportive treatment for now. I agreed with Dr. Mazariegos to discontinue vancomycin. We will try to minimize administering nephrotoxins. There is no indication for urgent dialysis at this moment. We will monitor her blood work and volume status closely. We will order UA, urine protein/creatinine ratio, urine sodium. Will order kidney sonogram. Thank you for allowing me to participate in the care of your patient. We will monitor along with you.
--- NOTE | 2017-04-01 18:43 | PCM.PNMED ---
Subjective Date of Service Apr 01, 2017 Subjective Overnight the patient had some pain but reportedly slept most of the night. She is very sleepy during our conversation and says she feels somewhat better and that her pain is controlled. She denies any fevers, sweats, abdominal pain. Exam Vital Signs Vital Sign - Last Date Time Temp Pulse Resp B/P Pulse Ox O2 Delivery O2 Flow Rate FiO2 04/01/17 16:53 36.6 95 22 111/69 94 Room Air 04/01/17 11:55 2.00 Intake and Output 03/31/17 03/31/17 04/01/17 Cumulative From/Thru 15:00 23:00 07:00 03/30/17 16:02 - 04/01/17 06:46 Intake Total 1180 ml 4429 ml 1133 ml 9303 ml Output Total 900 ml 550 ml 1700 ml Balance 1180 ml 3529 ml 583 ml 7603 ml Intake Oral 240 ml 600 ml IV Total 1180 ml 4429 ml 893 ml 8703 ml Output Urine Total 900 ml 550 ml 1700 ml # Bowel Movements 0 0 Exam General: Alert, Oriented X3, sleepy but rousable obese female lying with her eyes closed HEENT: PEERLA, EOMI. Membranes pink and moist. Neck: Supple, no tenderness, no thyromegaly CV: tachycardic but regular rhythm, Normal S1/S2, No Rubs/Gallops/murmurs Pulm: CTA bilaterally, no wheezing/rhonchi/rales Abd: Soft, Non-tender, Non-distended, Normoactive bowel tones. Extremities: both UE/LE slightly edematous, no cyanosis, no clubbing. Skin: no rashes, ulcers noted. did not examine pilonidal area as surgery changed the dressing and caused her considerable pain Neurological: CN 2-12 grossly intact, globally weak in all extremities, no sensation Psych: Flat mood and affect IVs and Medications Medications Reviewed: Medications were reviewed in detail Lab and Diagnostics Result Diagram: 04/01/17 0350 04/01/17 0350 Microbiology Urine Eosinophils negative MRSA swab negative Urine Culture 03/31 negative, one pending Abscess cultures pending Blood cultures negative x2d X-Rays, CTs and MRIs US Limited 03/31/17 IMPRESSION: Complex, multiloculated cystic mass corresponding to the palpable abnormality. Differential diagnosis would include inflammatory mass versus neoplastic mass given there is internal vascularity. Recommend clinical correlation. No drainable fluid collection. Dictated by: Tico Ocampo RRA Interpreted: Gume Small MD on 03/31/2017 at 13 :56 Transcribed by: TARAH on 03/31/2017 at 13:59 Approved by: Gume Small M.D. on 03/31/2017 at 16:27 Assessment & Plan 21yoF with past medical history of type 1/2 diabetes admitted due to outpatient treatment failure of lower back / pilonidal cyst cellulitis. Patient meets sepsis criteria on admission but remains stable, underwent I/D 03/[address] Chris. Sepsis, present on admission, acute, resolving Sepsis criteria met: HR >90, WBC >12, fever, RR, with source likely pilonidal cyst associated cellulitis -Failed outpatient augmentin for 5 days -Dr. Chris did I/D on 04/01, no purulence in wound today -Infectious Disease stopped vanc on 03/31, changed zosyn to renal adjusted dose ; awaiting cultures to refine - MRSA screen neg, no risks of MRSA infection. -NS running at 60ml/hr due to edema, per nephrology -oxycodone 5mg q4hr PRN pain -morphine PRN breakthrough pain Acute Kidney Injury, not present on admission, ongoing -Pt received vanc/zosyn for her septic presentation vs. acute tubular necrosis from infection -Vanc trough for tomorrow pending -Cr fletcher from .042 on admission to 3.51 today -Nephrology consulted, appreciate Dr. Salcido's input: NS at 60ml/hr Supportive treatment only; avoid nephrotoxic medications Kidney sonogram, UA, urine protein/Cr ratio, urine sodium ordered AG metabolic acidosis, POA, resolving -Likely ketosis from adez5CX -NS down to 60ml/hr due to edema per nephrology -Lactate 1.7 -DKA protocol stopped, switched to lantus 20 units at night with a medium correctional and nutritional dose -Trend AM labs, serum ketones Type 1DM, present on admission, improving -hyperglycemic on admission due to patient noncompliance (fear of needles) -A1c 10.1 -DKA protocol stopped, insulin regimen as above -BG's steady in the 150's today -Hot Header Operator consult ordered for diabetes education Anemia, present on admission, chronic, stable -likely secondary to menses -consider iron panel when more stable Tobacco dependence, present on admission, stable -nicotine patch made available upon request Disposition: Patient will continue to be an inpatient for another 2-3 days due to the complexity of her management and overall medical status before she can be discharged home. Pain Evaluation: Adequate Pain Control GI Prophylaxis: Not indicated VTE Prophylaxis: Sub-Q Heparin (Unfractionated), Other (ambulate, TID) Resuscitation Status: CPR: Attempt Resuscitation Attending Statement The patient was seen and examined together with Dr. East on 04/01/2017 and I agree with the history, exam and plan as outlined in the note above. . Jose Manuel East DO Apr 01, 2017 18:43 Mirza Slater MD Apr 02, 2017 07:59
--- NOTE | 2017-04-01 18:59 | DRSVH ---
PROCEDURE: US RENAL SONOGRAM INDICATIONS: LIN TECHNIQUE: Real-time scanning was performed of the kidneys and bladder, with image documentation. COMPARISON: None. FINDINGS: Kidneys: Kidneys are normal in size. Right kidney measures 13.1 cm long; left kidney measures 14.5 cm long. Right renal cortical thickness is 2.0 cm; left renal cortical thickness is 2.7 cm. Renal c ortical echotexture is normal. No hydronephrosis or nephrolithiasis. No suspicious solid mass lesio ns. Bladder: Urinary bladder decompressed and suboptimally visualized. Miscellaneous: No free pelvic fluid. IMPRESSION: Grossly normal appearance of the kidneys. Dictated by: Tico PERSON Interpreted: Divina Tineo MD on 04/01/2017 at 10:52 Approved by: Divina Tineo M.D. on 04/01/2017 at 18:57
--- NOTE | 2017-04-01 19:30 | NUR ---
Fluid Bolus 0825 - Noted that a fluid bolus had been ordered for about 0730 in the morning, but could not understand why it had been ordered. Was concerned that it was a duplicate order from yesterday. Spoke to Dr. Tijerina about this who said he was not for certain why it was ordered, but said to hold off from giving it for now. 1000 - Discussed her care with Dr. Tijerina, Dr. Slater, and the rest of the multidisciplinary care team during morning rounds. Mentioned that the fluid bolus was still ordered and asked if the MDs wanted it given. They said they would look into the reasoning for it to be given and hold off from giving it. 1155 - Spoke to Dr. Tijerina about discontinuing her insulin drip and the fluid bolus. He said to hold the fluid bolus for now and that he would discuss the insulin drip and the fluid bolus with Dr. Yvette East. 1245 - Paged Dr. Yvette East about advancing her diet as she was requesting it. He called back and said it could be advanced to a heart healthy/diabetic diet. It was advanced and she was able to eat part of her lunch. Her family also brought in some food for her to eat. 1500 - An order came through for the IV insulin drip to be discontinued and it was per MD orders. 1608 - Still had not heard from any of the MDs regarding the fluid bolus. Paged Dr. Chris who had originally ordered the fluid bolus and she said she ordered it due to her renal failure issues and wanted it given. It was given and she tolerated it well. Prior to it being administered she had normal saline running at 60-100mls/hour, she was taking in fluids (by mouth) well, and had been urinating well (see electronic I&O record for details). Care continues.
[2017-04-02] VITALS (9 sets, daily range): BP systolic 97–131; BP diastolic 62–83; PULSE 86–100; RESP 14–20; O2SAT 93–97
[2017-04-02] MEDS: HYDROmorphone 1 mg/mL Inj IVPUSH PRN ×6 (00:04→20:21)
[2017-04-02] MEDS: HYDROcodone-APAP 5-325 mg Tablet PO PRN ×3 (02:51→23:04)
[2017-04-02 03:31] LABS: BASOPHILS % (AUTO) 0.3 % (0-3); EOSINOPHILS % (AUTO) 2.9 % (0-5); MONOCYTES % (AUTO) 9.8 % (4-12); Mean Corpuscular Hemoglobin 18.4 pg (27.0-35.0); Mean Corpuscular Volume 62.1 fL (81-100); NEUTROPHILS % (AUTO) 67.3 % (40-74); Platelet Count 313 bil/L (150-400)
[2017-04-02] MEDS: Piperacillin-Tazo 3.375 Gm Inj 3.375 GM in Dextrose 5% Minibag Plus 50 ML IV SCH ×2 (04:06→16:19)
[2017-04-02] MEDS ORDERED: Furosemide 10 mg/mL 2 mL Inj IVPUSH ONE (07:40)
[2017-04-02] MEDS: Insulin LISPRO 300 Unit/3 mL Inj SUBQ SCH ×4 (08:00→22:00)
--- NOTE | 2017-04-02 10:55 | NUR ---
Wound Note Patient seen at bedside with Dr Mazariegos, packing removed after infiltrated with 4% lidocaine, wound is clean measuring 3 cm in length and 2 cm in width and 1.8 cm in depth there is a sy drain in place which moves freely between this wound and the 1 cm long wound at the left side of her gluteal cleft, wounds are clean and without erythema. Repacked with 2x2 gauze, mother watched dressing change and felt she would be able to perform them. Patient continues to be followed for kidney issues, nursing to change dressings daily over the weekend. Wound to recheck on this patient on Wednesday.
--- NOTE | 2017-04-02 11:32 | PROG NOTE ---
[address] [address] PROGRESS NOTE PATIENT: JENN COX : 1995 MR#: [id number] ADMIT: 03/30/2017 JOB ID: [id number] DATE: 04/02/2017 INFECTIOUS DISEASE FOLLOW UP NOTE: REASON FOR FOLLOWUP: Pilonidal cyst with anaerobic infection. INTERVAL HISTORY: The patient continues to have a great deal of pain at the site of her bilateral buttock debridement. I was present today for the dressing change with Elmer of the wound management team and we carefully removed the current packing and evaluated her wounds in detail. For her part, the patient has no more fevers or chills. She denies shortness of breath, but she does report a lot of pain. PHYSICAL EXAMINATION: Reveals an anxious and tearful young woman. Temperature 36.7, pulse 92, respiratory rate 14, blood pressure 112/77. She is saturating well but on 2 L nasal oxygen. Examination of the lungs reveals them to be clear. Cardiac tones without murmur. Abdomen somewhat obese. The left upper gluteal abscess has a Dianna drain in it and it is quite small and appears to be healing rapidly. On the right upper gluteal area, there is a larger wound which is directly across the gluteal cleft and that wound was packed. When we removed the gauze, there is no evidence of purulence at this point and there is starting to be some granulation tissue. There is no evidence for ongoing surrounding cellulitis or infection. LABORATORIES: Include white count now 12,700, platelets normal at 313. Creatinine still climbing but slowing now at 3.87. LFTs are normal. Procalcitonin 0.37, which is probably normal given her renal dysfunction. Micro studies include the wound gram stain from Dr. Chris's debridement. This had gram positive cocci but there is no growth now at almost 72 hours suggesting these were likely anaerobic organisms. Otherwise we have negative blood cultures, negative MRSA screen, negative urine. Renal ultrasound shows normal appearing kidneys. IMPRESSION: This is a young woman with diabetes who suffered bilateral upper gluteal pilonidal abscesses which have been debrided by surgery. We have no positive blood cultures and the wound gram stain shows gram positive cocci which failed to grow suggesting these were anaerobic streptococcal organisms. The patient has developed acute renal failure probably due to a combination of sepsis from the infection, her ongoing poorly controlled diabetes and the vancomycin she received early on. The vanco has now been stopped for two or three days but undoubtedly there is still a bit around with declining levels going forward. The patient does remain on Zosyn which I think is appropriate for a poorly controlled diabetic who is at risk for some more extended gram negative carissa organisms. RECOMMENDATIONS: 1. Will continue with Zosyn. 2. I discussed this case in detail at the bedside with Elmer of Wound Care and in the hallway with Dr. Campbell of Nephrology.
--- NOTE | 2017-04-02 13:20 | NUR ---
Fluids Clarified with nephrology that they would like NS at 40ml/hr. Pt w/ new IV. Will monitor.
[2017-04-02] MEDS: 0.9% Sodium Chloride 1,000 ML IV SCH ×2 (13:31→14:41)
--- NOTE | 2017-04-02 14:02 | PCM.PNMED ---
Subjective Date of Service Apr 02, 2017 Subjective Overnight the patient reports feeling better and able to sleep more comfortably. This morning she is awake and in no acute distress. She is happy to be feeling better but is worried that she hasn't had a bowel movement in a couple days. We talked about her fear of needles and the necessity of her insulin regimen, to which she understood as it is making her feel better. Exam Vital Signs Vital Sign - Last Date Time Temp Pulse Resp B/P Pulse Ox O2 Delivery O2 Flow Rate FiO2 04/02/17 07:49 36.7 92 14 112/77 96 Nasal Cannula 2.00 Intake and Output 04/01/17 04/01/17 04/02/17 Cumulative From/Thru 15:00 23:00 07:00 03/30/17 16:02 - 04/02/17 06:36 Intake Total 2104 ml 300 ml 03455 ml Output Total 800 ml 2500 ml Balance 1304 ml 300 ml 9207 ml Intake Oral 437 ml 300 ml 1337 ml IV Total 1667 ml 73300 ml Output Urine Total 800 ml 2500 ml # Voids 5 5 # Bowel Movements 0 0 Exam General: Alert, Oriented X3, awake obese female eating ice chips HEENT: PEERLA, EOMI. Membranes pink and moist. Neck: Supple, no tenderness, no thyromegaly CV: RRR, Normal S1/S2, No Rubs/Gallops/murmurs Pulm: CTA bilaterally, no wheezing/rhonchi/rales Abd: Soft, Non-distended. Slight tenderness in the right quadrants. Normoactive bowel tones. Extremities: slight UE edema bilaterally, no edema in her LE. No cyanosis or clubbing. Skin: warm, dry. no rashes, ulcers noted Neurological: CN 2-12 grossly intact, muscle strength normal in all extremities , no sensory deficits Psych: Normal mood and affect IVs and Medications Medications Reviewed: Medications were reviewed in detail Lab and Diagnostics Result Diagram: 04/02/17 0320 04/02/17 0320 Microbiology Urine Eosinophils negative MRSA swab negative Urine Culture 03/31 negative, one pending Abscess cultures pending Blood cultures negative x2d X-Rays, CTs and MRIs US Limited 03/31/17 IMPRESSION: Complex, multiloculated cystic mass corresponding to the palpable abnormality. Differential diagnosis would include inflammatory mass versus neoplastic mass given there is internal vascularity. Recommend clinical correlation. No drainable fluid collection. Dictated by: Tico PERSON Interpreted: Gume Small MD on 03/31/2017 at 13 :56 Transcribed by: TARAH on 03/31/2017 at 13:59 Approved by: Gume Small M.D. on 03/31/2017 at 16:27 Retro 04/02 IMPRESSION: Grossly normal appearance of the kidneys. Dictated by: Tico PERSON Interpreted: Divina Tineo MD on 04/01/2017 at 10: 52 Approved by: Divina Tineo M.D. on 04/01/2017 at 18:57 Assessment & Plan 21yoF with past medical history of type 1/2 diabetes admitted due to outpatient treatment failure of lower back / pilonidal cyst cellulitis. Patient meets sepsis criteria on admission but remains stable, underwent I/D 03/[address] Chris. Sepsis, present on admission, acute, resolving Sepsis criteria met: HR >90, WBC >12, fever, RR, with source likely pilonidal cyst associated cellulitis -Failed outpatient augmentin for 5 days -Dr. Chris did I/D on 04/01, no purulence in wound as of 04/02 -Infectious Disease stopped vanc on 03/31, changed zosyn to renal adjusted dose -Blood cultures negative x72h - MRSA screen neg, no other risks of MRSA infection. -NS running at 60ml/hr due to edema, per nephrology -oxycodone 5mg q4hr PRN pain -morphine PRN breakthrough pain Acute Kidney Injury, not present on admission, ongoing -Likely due to combination of poorly controlled diabetes, sepsis, and antibiotic toxicity -Pt received vanc and zosyn 03/31, changed to renally adjusted zosyn only later that day -Cr fletcher from .042 on admission fletcher to 3.87 on 04/02 -Nephrology consulted, appreciate Dr. Salcido's input: NS at 60ml/hr Supportive treatment; avoid nephrotoxic medications Kidney sonogram unremarkable Urine culture negative x24h Urine creatinine normal AG metabolic acidosis, POA, resolving -Likely ketosis from diabetes with small ketones present -NS down to 60ml/hr due to edema per nephrology -Lactate 1.7, unlikely the cause -DKA protocol stopped 04/01, switched to lantus 20 units at night with a medium correctional and nutritional dose -Continue to trend until gap closes Type 1DM, present on admission, improving -hyperglycemic on admission due to patient noncompliance (fear of needles) -A1c 10.1 -Insulin regimen as above -BG's in the 120-150 overnight -Metal Precision Machine Assembler consult ordered for diabetes education Anemia, present on admission, chronic, stable -likely secondary to menses, pt is asymptomatic -could be dilutional, will trend H/H -consider iron panel when more stable Tobacco dependence, present on admission, stable -nicotine patch made available upon request Disposition: Patient will continue to be an inpatient for another 2-3 days due to the complexity of her management and overall medical status before she can be discharged home. Pain Evaluation: Adequate Pain Control GI Prophylaxis: Not indicated VTE Prophylaxis: Sub-Q Heparin (Unfractionated), Other (ambulate, TID) Resuscitation Status: CPR: Attempt Resuscitation Time spent 35 minutes Attending Statement I have seen and evaluated patient at bedside in addition to directly supervising care provided by resident physician, Dr. East. I agree with above documentation. Jose Manuel East DO Apr 02, 2017 10:22 Kris Bowles DO Apr 02, 2017 18:18
--- NOTE | 2017-04-02 16:00 | NUR ---
Status MD notified of pt use of IV pain meds with norco in between. Decreased appetite. Senna given for reported constipation. Seen by wound and ID earlier today. Pt otherwise stable. Will continue with pain meds as ordered and continue to monitor.
--- NOTE | 2017-04-02 17:19 | PCM.PNSURG ---
Subjective Visit Information: Reason for Visit Cellulitis, Leukocytosis, Diabetes, Failes Po Anti Surgery/Surgery Date Post-Op Day # Date of Admission: Mar 30, 2017 at 20:10 Hospital Day # Subjective: Stable overnight. Leukocytosis improving. Cultures pending. Cr rising. Objective Vital Sign- Last 8 Hours Date Time Temp Pulse Resp B/P Pulse Ox O2 Delivery O2 Flow Rate FiO2 04/02/17 16:39 Supplement Oxygen 04/02/17 16:30 37.0 88 16 111/77 97 Nasal Cannula 2.00 04/02/17 12:12 36.9 93 16 112/75 95 Nasal Cannula 2.00 Intake and Output- Last 8 Hour 04/02/17 Cumulative From/Thru 07:00 03/30/17 16:02 - 04/02/17 06:36 Intake Total 300 ml 32740 ml Output Total 2500 ml Balance 300 ml 9207 ml Intake Oral 300 ml 1337 ml IV Total 60926 ml Output Urine Total 2500 ml # Voids 5 5 # Bowel Movements 0 General: Alert, Oriented X3, Cooperative, No Acute Distress Extremities: Other (skin around wound without erythema, sy intact, packs intact. I left packing in as Elmer Jay examined early in day and I do not suspect significant clinical change.) Result Diagram: 04/02/17 0320 04/02/17 0320 Assessment & Plan Impression POD2 I&D pilonidal Renal failure Severe uncontrolled diabetes Problems: Plan Continue current wound care. Continue antibiotics. Appreciate care of primary team, ID, nephrology VTE Prophylaxis: Sub-Q Heparin (Unfractionated), Other (ambulate, TID) Resuscitation Status: CPR: Attempt Resuscitation Erin Chris MD Apr 02, 2017 17:19
[2017-04-02] MEDS: Ondansetron 2 mg/mL 2 mL Inj IVPUSH PRN (23:15)
[2017-04-03] MEDS: HYDROmorphone 1 mg/mL Inj IVPUSH PRN ×2 (01:13→08:35)
[2017-04-03 03:22] LABS: BASOPHILS % (AUTO) 0.3 % (0-3); EOSINOPHILS % (AUTO) 3.3 % (0-5); MONOCYTES % (AUTO) 9.5 % (4-12); Mean Corpuscular Hemoglobin 18.3 pg (27.0-35.0); Mean Corpuscular Volume 60.9 fL (81-100); NEUTROPHILS % (AUTO) 65.1 % (40-74); Platelet Count 329 bil/L (150-400)
[2017-04-03] MEDS: Piperacillin-Tazo 3.375 Gm Inj 3.375 GM in Dextrose 5% Minibag Plus 50 ML IV SCH (04:19)
[2017-04-03 04:20] VITALS: BP 123/85; PULSE 84; RESP 20; O2SAT 97
--- NOTE | 2017-04-03 05:43 | NUR ---
Pain/Nausea/GI Pt given PRN [place] and Dilaudid for 8-9/10 pain around sacral wound. Pt reports that [place] on its own is minimally effective. Pt appeared to sleep comfortably after Dilaudid admin. Pt reported N/V earlier in shift, given Zofran w/ no further reports of nausea. Pt reported 1 small bowel movement but still feels constipated, refused additional Senna at the time. Pt was encouraged to increase ambulation during day.
[2017-04-03 05:59] VITALS: PULSE 95
[2017-04-03] MEDS: Insulin LISPRO 300 Unit/3 mL Inj SUBQ SCH ×2 (08:00→13:25)
[2017-04-03 08:38] VITALS: PULSE 80
[2017-04-03 08:47] VITALS: BP 124/87; PULSE 84; RESP 20; O2SAT 93
[2017-04-03] MEDS: Ondansetron 2 mg/mL 2 mL Inj IVPUSH PRN (09:05)
[2017-04-03] MEDS ORDERED: Ertapenem Inj 1,000 MG in 0.9% Sodium Chloride 50 ML IV SCH (10:00)
--- NOTE | 2017-04-03 10:18 | PCM.PNSURG ---
Subjective Date of Service: Apr 03, 2017 Visit Information: Reason for Visit Cellulitis, Leukocytosis, Diabetes, Failes Po Anti Surgery/Surgery Date Post-Op Day # Date of Admission: Mar 30, 2017 at 20:10 Hospital Day # Subjective: Pain appropriately controlled, though she reports severe pain with wound care Got several hours of good sleep overnight No fevers or chills No other complaints to reports Objective Vital Sign- Last 8 Hours Date Time Temp Pulse Resp B/P Pulse Ox O2 Delivery O2 Flow Rate FiO2 04/03/17 08:47 Supplement Oxygen 04/03/17 08:47 36.7 84 20 124/87 93 Room Air 04/03/17 08:38 80 04/03/17 05:59 95 04/03/17 04:20 36.8 84 20 123/85 97 Nasal Cannula 2.00 Intake and Output- Last 8 Hour 04/03/17 Cumulative From/Thru 07:00 03/30/17 16:02 - 04/03/17 06:50 Intake Total 1194 ml 11605 ml Output Total 550 ml 3800 ml Balance 644 ml 9901 ml Intake Oral 637 ml 2774 ml IV Total 557 ml 11459 ml Output Urine Total 550 ml 3800 ml # Voids 3 8 # Bowel Movements 1 1 General: Alert, Cooperative, No Acute Distress Lungs: Normal Air Movement Heart: Exam Unremarkable Abdomen: Benign SURGICAL WOUND : Wound Location/Description Wound at gluteal cleft unpacked. Looped sy in place. Wound is cleaned based without blood, purulence, or other discharge. Surrounding skin nonerythematous. Result Diagram: 04/03/17 0310 04/03/17 0310 Assessment & Plan Impression S/p I&D of pilonidal abscess. Wound healing appropriately with looped sy in place. Leukocytosis resolved. LIN and Cr improving. Problems: Plan Ok for discharge from surgical standpoint. Maintain sy in place Follow up with Dr. Chris this week Will need follow up with wound care center Continue local wound care with recommendations from wound team (Likely BID wet- to-dry dressings) Agree with rest of plan per medicine team (thanks) I examined and interviewed this pt and agree with the plan above as noted by Dr. Diaz. Erin Chris MD VTE Prophylaxis: Sub-Q Heparin (Unfractionated), Other (ambulate, TID) Resuscitation Status: CPR: Attempt Resuscitation Garbus,Jairo J MD Apr 03, 2017 10:18 Erin Chris MD Apr 03, 2017 11:20
[2017-04-03] MEDS ORDERED: Furosemide 10 mg/mL 4 mL Inj IVPUSH ONE (10:45)
[2017-04-03 10:55] VITALS: PULSE 87; RESP 16; O2SAT 94
--- NOTE | 2017-04-03 10:55 | PROG NOTE ---
[address] [address] PROGRESS NOTE PATIENT: JENN COX : 1995 MR#: [id number] ADMIT: 03/30/2017 JOB ID: [id number] DATE: 04/03/2017 INFECTIOUS DISEASE FOLLOW UP NOTE: REASON FOR FOLLOWUP: Pilonidal abscess in a diabetic with impaired renal function. INTERVAL HISTORY: The patient reports that she still has considerable pain, and in fact, is still requiring intravenous pain meds for the gluteal pain. She also notes she still remains somewhat short of breath and is requiring nasal oxygen. She continues to have a bit of a dry cough, though she does not report significant shortness of breath. Still to keep her O2 sats up, we are using 2 L by nasal prongs. The patient has no nausea, vomiting, diarrhea. She remains quite anxious. PHYSICAL EXAMINATION: Reveals an afebrile young woman, no acute distress. Temperature 36.7. She has been afebrile three or four days. Pulse 84, respiratory rate 20, blood pressure 124/87, saturating 93% on room air. Examination of the mental status reveals it to be clear. Though as noted, the patient is very anxious. Oral cavity negative. Lungs: Clear to my examination posteriorly. Cardiac tones: Regular rate and rhythm. The abdomen obese soft, nontender. I did not examine the gluteal abscesses at the patient's request as she said she is behind on her pain meds and it is too much to ask this morning, but I did examine it carefully yesterday with the wound clinician and we found that there was evidence of healing and no purulence. LABORATORIES: Include white count which has dropped all the way to normal 9900. There is a normal differential. Creatinine has dropped from 3.9 to 2.9 reflecting a dramatic increase in renal function which is actually probably somewhere near normal at this point. Her LFTs are normal. Urinalysis with 6-10 white cells. Blood cultures negative. Cultures from the wound are not growing although there were organisms seen on the Gram stain which almost certainly means these are anaerobic. The patient is getting much better and her renal function is starting to rapidly improve. At this point, I think we should continue with IV antibiotics as long as she is here in the hospital. Then she could be transitioned to Augmentin as the obvious choice to finish her therapy. RECOMMENDATIONS: 1. I will go ahead and stop the Zosyn as she does not need a multi dose anti pseudomonal therapy. 2. We will get the patient started on ertapenem 1 g once a day which she should continue as long as she is here in the hospital. 3. Once she is ready to go, she can go on Augmentin 875 b.i.d. to finish about a 10 day course. 4. The patient will obviously need to followup in the wound management arena. 5. ID will go ahead and sign off at this time. Thank you very much for involving me in the care of this interesting case.
--- NOTE | 2017-04-03 11:48 | PCM.PNNEPH ---
Subjective Date of Service Apr 03, 2017 Subjective Feeling better. C/o puffy arms and legs. Good UOP. No fever/chills. Exam Vital Signs Vital Sign - Last Date Time Temp Pulse Resp B/P Pulse Ox O2 Delivery O2 Flow Rate FiO2 04/03/17 10:55 87 16 94 Room Air 04/03/17 08:47 36.7 124/87 04/03/17 04:20 2.00 Intake and Output 04/02/17 04/02/17 04/03/17 Cumulative From/Thru 15:00 23:00 07:00 03/30/17 16:02 - 04/03/17 06:50 Intake Total 800 ml 1194 ml 28735 ml Output Total 750 ml 550 ml 3800 ml Balance 50 ml 644 ml 9901 ml Intake Oral 800 ml 637 ml 2774 ml IV Total 557 ml 04559 ml Output Urine Total 750 ml 550 ml 3800 ml # Voids 3 8 # Bowel Movements 1 1 Exam General appearance: Awake, alert. Oriented x3. HEENT: No pallor. No jaundice. No JVD. No lymphadenopathy. No thyroid enlargement. PERRLA. Atraumatic. Moist mucous membranes. Heart: Regular rhythm. Normal S1, S2. No murmurs, rubs, or gallops. Lungs: Clear to auscultation bilaterally. No wheezing. No rhonchi. Abdomen: Soft. Active bowel sounds. Nontender, nondistended. Extremity: Trace edema on the lower and upper extremity. No skin rash. Lab and Diagnostics Result Diagram: 04/03/17 0310 04/03/17 0310 Microbiology Urine Eosinophils negative MRSA swab negative Urine Culture 03/31 negative, one pending Abscess cultures pending Blood cultures negative x2d X-Rays, CTs and MRIs US Limited 03/31/17 IMPRESSION: Complex, multiloculated cystic mass corresponding to the palpable abnormality. Differential diagnosis would include inflammatory mass versus neoplastic mass given there is internal vascularity. Recommend clinical correlation. No drainable fluid collection. Dictated by: Tico PERSON Interpreted: Gume Small MD on 03/31/2017 at 13 :56 Transcribed by: TARAH on 03/31/2017 at 13:59 Approved by: Gume Small M.D. on 03/31/2017 at 16:27 Retro US 04/02 IMPRESSION: Grossly normal appearance of the kidneys. Dictated by: Tico Ocampo [facility] Interpreted: Divina Tineo MD on 04/01/2017 at 10: 52 Approved by: Divina Tineo M.D. on 04/01/2017 at 18:57 Plan Impression 1. Acute kidney injury likely due to acute tubular necrosis in the setting of ongoing infection, also could be due to vancomycin-induced acute tubular necrosis (ATN). - improving. 2. Abscess status post incision and drainage (ID). 3. Insulin-dependent diabetes, poorly controlled. Plan: d/c IVF. IV lasix 40 mg x1. Repeat BMP in am. Likely to be d/c'd within 24 hr. F/u in 1 week. Rec low salt diet. Jeremiah Perez MD Apr 03, 2017 11:48
[2017-04-03 12:25] VITALS: BP 124/84; PULSE 86; RESP 12; O2SAT 89
[2017-04-03] MEDS ORDERED: AMOX-366 PO (13:25)
[2017-04-03] MEDS ORDERED: HYDR-4003 PO (13:25)
--- NOTE | 2017-04-03 13:50 | PCM.DIMED ---
Jose Manuel East DO 04/03/17 1350: Discharge Instructions Date of Service Apr 03, 2017 Dates of Hospitalization Mar 30, 2017 at 20:10 Discharge Diagnosis Discharge Diagnosis Sepsis Acute Kidney Injury AG metabolic acidosis Type 1DM Anemia Tobacco dependence Medication Instructions Additional med instructions You need to continue to take Augmentin twice daily for 7 days to ensure your infection stays under control. Diet Discharge Diet: Diabetic Activity Discharge Activity: Other (watch incision site) Call your provider Call your provider for: Fever or Chills, Shortness of breath, Vomitting, Excessive diarrhea Patient Instructions Patient Instructions Take your Augmentin for 7 more days to prevent infection of your incision site. Your kidney function is improving but not back to baseline. Follow up with Dr. Thapa as soon as possible to ensure your kidney function returns to a normal level. You need to take your insulin regularly. Restart your home inhaled and injectable dose and follow up with Dr. Thapa to titrate the dose accordingly. Provider: OTHER,PHYSICIAN Follow-up in: 1 week (Dr Thapa in [place], [place]) Kris Bowles DO 04/04/17 1549: Discharge Instructions Attending's Statement Read and agree Jose Manuel East DO Apr 03, 2017 13:50 Kris Bowles DO Apr 04, 2017 15:49
--- NOTE | 2017-04-03 13:59 | PCM.DC.MED ---
Discharge Summary Date of Service Apr 03, 2017 Dates of Hospitalization Date of Hospital Admission Mar 30, 2017 at 20:10 Date of Discharge: Apr 03, 2017 Providers: Admitting Physician: Mirza Slater MD Primary Care Physician: Other,Physician Attending Physician: Mirza Slater MD Diagnosis at Time of Discharge Diagnosis at Time of Discharge Sepsis Acute Kidney Injury AG metabolic acidosis Type 1DM Anemia Tobacco dependence Consultations Per Dr. Campbell of Nephrology: d/c IVF. IV lasix 40 mg x1. Repeat BMP in am. F/u in 1 week. Rec low salt diet. Procedures XRay, CTs & MRIs US Limited 03/31/17 IMPRESSION: Complex, multiloculated cystic mass corresponding to the palpable abnormality. Differential diagnosis would include inflammatory mass versus neoplastic mass given there is internal vascularity. Recommend clinical correlation. No drainable fluid collection. Dictated by: Tico PERSON Interpreted: Gume Small MD on 03/31/2017 at 13 :56 Transcribed by: TARAH on 03/31/2017 at 13:59 Approved by: Gume Small M.D. on 03/31/2017 at 16:27 Retro US 04/02 IMPRESSION: Grossly normal appearance of the kidneys. Dictated by: Tico PERSON Interpreted: Divina Tineo MD on 04/01/2017 at 10: 52 Approved by: Divina Tineo M.D. on 04/01/2017 at 18:57 Brief History 21yoF with past medical history of type 1 diabetes admitted due to outpatient treatment failure of lower back / pilonidal cyst cellulitis. Patient states that she began having discomfort in her superior gluteal cleft about 5 days ago and was seen in [place] for this concern. She was diagnosed with cellulitis and given amoxicillin as per patient and sent home. She has not improved but in fact worsened with fevers up to 103 yesterday 03/30. Due to concern for worsening pain and symptoms patient was brought to the ED by her mother for further evaluation. Patient's mother notes that patient has not been taking insulin regularly and has not taken it in the past few days. 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 She is afraid of needles and doesn't consistently take her insulin with blood glucoses ranging in the 400-700 range regularly with recent a1c in the 11 range. While she is aware of the issues associated with diabetes (grandmother of renal dysfunction recently 2/2 diabetes) she continues to show little concern about managing her diabetes appropriately. The patient was fluid resuscitated, given vanc/zosyn, and underwent an incision and drainage by Dr. Chris. Her kidney function declined rapidly, vanc was discontinued and zosyn renally adjusted. Her blood glucose was brought under better control as well. The patient was adamant about leaving today, even with recommendations by nephrology and the general IM team to watch her kidney function for further improvement. She will be discharged on 7 days of Augmentin per ID recommendations and see her PCP, Dr. Thapa in [place], for her kidney follow up. Hospital Course 21yoF with past medical history of type 1/2 diabetes admitted due to outpatient treatment failure of lower back / pilonidal cyst cellulitis. Patient meets sepsis criteria on admission but remains stable, underwent I/D 03/[address] Chris. Sepsis, present on admission, acute, resolved Sepsis criteria met on admission: HR >90, WBC >12, fever, RR, with source likely pilonidal cyst associated cellulitis -Dr. Chris did I/D on 04/01, no purulence in wound as of 04/03 -Blood cultures negative x72h - MRSA screen neg, no other risks of MRSA infection. -WBC unremarkable today, wound has no signs of infection, no fever/chills -Continue Augmentin BID for 7 days per ID recommendations Acute Kidney Injury, not present on admission, ongoing -Likely due to combination of poorly controlled diabetes, sepsis, and antibiotic toxicity -Pt received vanc and zosyn 03/31, changed to renally adjusted zosyn only later that day -Creatinine peaked at 3.87 on 04/02, fell to 2.94 on 04/03 -Pt wanted to d/c today even with kidney function, will see her PCP, Dr. Thapa, [facility] to reevaluate kidney function -Nephrology recommends f/u in 1 week as well AG metabolic acidosis, POA, resolved -Likely ketosis from diabetes with small ketones present -NS discontinued 04/03 -Lactate 1.7, unlikely the cause -DKA protocol stopped 04/01, switched to lantus 20 units at night with a medium correctional and nutritional dose Type 1DM, present on admission, improving -hyperglycemic on admission due to patient noncompliance (fear of needles) -A1c 10.1 -Courtroom Deputy consult ordered for diabetes education -Pt to restart home insulin regimen with close f/u with pcp, Dr. Thapa Anemia, present on admission, chronic, stable -likely secondary to menses, pt is asymptomatic -f/u as outpatient with pcp, Dr. Thapa Tobacco dependence, present on admission, stable -counseled on cessation Disposition: Patient was discharged home in stable and improved condition. She did not want to wait until morning for further evaluation of her kidney function. She understood the risks and events that would require her to return to the hospital and will follow up accordingly. Exam Vital Signs (Last) Date Time Temp Pulse Resp B/P Pulse Ox O2 Delivery O2 Flow Rate FiO2 04/03/17 12:25 36.5 86 12 124/84 89 Room Air 04/03/17 04:20 2.00 Exam General: Alert, Oriented X3, awake obese female eating ice chips HEENT: PEERLA, EOMI. Membranes pink and moist. Neck: Supple, no tenderness, no thyromegaly CV: RRR, Normal S1/S2, No Rubs/Gallops/murmurs Pulm: CTA bilaterally, no wheezing/rhonchi/rales Abd: Soft, Non-distended. Slight tenderness in the right quadrants. Normoactive bowel tones. Extremities: Trace edema around ankles bilaterally. No cyanosis or clubbing. Skin: warm, dry. no rashes, ulcers noted Neurological: CN 2-12 grossly intact, muscle strength normal in all extremities , no sensory deficits Psych: Normal mood and affect Test 03/30/17 18:31 03/31/17 06:30 03/31/17 17:13 03/31/17 22:10 Lactic Acid Level 1.4mmol/L (0.4-2.0) Hemoglobin A1c 10.1% (4.8-5.6) Urine HCG, Qualitative Negative (Negative) Urine Opiates Screen Negative Urine Methadone Screen Negative Urine Barbiturates Screen Negative Urine Amphetamines Screen Negative Urine Benzodiazepines Screen Negative Urine Cocaine Metabolite Screen Negative Urine Cannabinoids Screen Negative Hold Arizmendi Top Tube Received (Received) Test 04/01/17 03:50 04/01/17 08:39 04/02/17 03:20 04/03/17 03:10 Phosphorus Level 5.0mg/dL (2.5-4.9) Magnesium Level 1.9mg/dL (1.6-2.6) Procalcitonin 0.37ng/mL (0.00-0.08) Random Vancomycin Level 14.2ug/mL Rx Urine Color Straw (YELLOW) Urine Appearance Hazy (CLEAR,HAZY) Urine pH 5.5 (5.0-8.0) Urine Specific [place] 1.005 (1.003-1.035) Urine Protein 30mg/dL (NEG,TRACE) Urine Glucose (UA) Negativemg/dL (NEGATIVE) Urine Ketones Negativemg/dL (NEGATIVE) Urine Occult Blood Trace (NEGATIVE) Urine Nitrite Negative (NEGATIVE) Urine Bilirubin Negative (NEGATIVE) Urine Urobilinogen Normalmg/dL (NORMAL) Urine Leukocyte Esterase Small (NEGATIVE) Urine RBC 0-2/hpf (0-2) Urine WBC 6-10/hpf (0-5) Urine Epithelial Cells Few/hpf (NONE-MOD) Urine Crystals None seen (NONE SEEN) Urine Bacteria Few/hpf (NONE-FEW) Urine Hyaline Casts None/lpf (NONE) Urine Granular Casts None seen (NONE SEEN) Urine Waxy Casts None seen (NONE SEEN) Urine Red Blood Cell Casts None seen (NONE SEEN) Urine White Blood Cell Casts None seen (NONE SEEN) Urine Mucus None seen (None Seen) Urine Trichomonas None seen (NONE SEEN) Urine Yeast None (NONE SEEN) Urinalysis Comment None Urine Culture Reflexed Indicated Urine Random Creatinine 72mg/dL (16-392) Urine Random Total Protein 34mg/dL (0-15) Ketones Small (Negative) White Blood Count 9.9th/mm3 (3.8-10.1) Red Blood Count 4.09mil/mm3 (3.90-5.20) Hemoglobin 7.5g/dL (12.0-15.6) Hematocrit 24.9% (35.0-46.0) Mean Corpuscular Volume 60.9fL (81-100) Mean Corpuscular Hemoglobin 18.3pg (27.0-35.0) Mean Corpuscular Hemoglobin Concent 30.1% (32.0-37.0) Red Cell Distribution Width 16.4% (12.3-15.4) Platelet Count 329bil/L (150-400) Neutrophils (%) (Auto) 65.1% (40-74) Lymphocytes (%) (Auto) 21.5% (14-46) Monocytes (%) (Auto) 9.5% (4-12) Eosinophils (%) (Auto) 3.3% (0-5) Basophils (%) (Auto) 0.3% (0-3) Sodium Level 139mEq/L (134-144) Potassium Level 4.4mEq/L (3.5-5.2) Chloride Level 106mEq/L (97-108) Carbon Dioxide Level 19mmol/L (18-29) Blood Urea Nitrogen 22mg/dL (6-20) Creatinine 2.94mg/dL (0.57-1.00) Estimat Glomerular Filtration Rate 29mL/min (>59) Glucose Level 136mg/dL (60-99) Calcium Level 8.5mg/dL (8.5-10.1) Total Bilirubin 0.4mg/dL (0.0-1.2) Aspartate Amino Transf (AST/SGOT) 20U/L (0-50) Alanine Aminotransferase (ALT/SGPT) 6U/L (0-32) Alkaline Phosphatase 82U/L (25-150) Total Protein 5.4g/dL (6.4-8.4) Albumin 2.8g/dL (3.4-5.0) Microbiology Results Urine Eosinophils negative MRSA swab negative Urine Culture 03/31 negative, one pending Abscess cultures pending Blood cultures negative x2d Discharge Medications Discharge Medications Amoxicillin/Clav K 875-125 mg (Augmentin 875-125 mg) 1 Each Tablet 1 TABLET PO BID Prescribed by: KRIS BOWLES DO Insulin Glargine,Hum.rec.anlog (Yasmine Purdy) 300 Unit/Ml (1.5 Ml) Insuln.pen 20-40 SQ HS (Reported) ON AVERAGE TAKES 20 UNITS. WILL TAKE 20-40 UNITS PER SLIDING SCALE DEPENDING ON FASTING BLOOD SUGAR. Insulin Regular, Human (Afrezza) 8 Unit (60)/12 Unit (30) Cart.w.dev 8 UNITS IH BIDWM (Reported) LUNCH AND DINNER ONLY As needed Hydrocodone-Acetaminophen 5-325 mg (Hydrocodone-Acetaminophen 5-325 mg) 1 Each Tablet 1 TABLET PO Q4H PRN PRN For Pain Prescribed by: KRIS BOWLES,DO Additional med instructions You need to continue to take Augmentin twice daily for 7 days to ensure your infection stays under control. Followup Plan Discharge Diet: Diabetic Discharge Activity: Other (watch incision site) Patient Instructions Take your Augmentin for 7 more days to prevent infection of your incision site. Your kidney function is improving but not back to baseline. Follow up with Dr. Thapa as soon as possible to ensure your kidney function returns to a normal level. You need to take your insulin regularly. Restart your home inhaled and injectable dose and follow up with Dr. Thapa to titrate the dose accordingly. Follow up with Dr. Chris for evaluation of your incision site and removal of the drain. Since you want to move away from your Afreeza, your new insulin regimen is as follows: 15 units long acting (glargine/lantus) at night Check BS in the morning, increase long acting by 2 units for every 100 glucose above target until you reach goal 1-2 units of short acting for every 100 glucose over target after eating a meal (30m-1h after eating) Keep a journal of your sugars until you meet with Dr. Thapa to evaluate the effectiveness of this new regimen. Follow-up Provider: Jeremiah Perez MD Follow-up with PCP in: 1 week Provider: OG,PHYSICIAN Follow-up in: 1 week (Dr Thapa in [place], [place]) Time spent 45 minutes Attending Statement I have seen and evaluated patient at bedside in addition to directly supervising care provided by resident physician. I agree with above documentation from 04/03/2017 by david East. This was a challenging 21-year-old patient, admitted with pilonidal cyst complicated by poorly controlled diabetes. Patient seemed to demonstrate some improved insight into the importance of better diabetic management during hospital stay, but nonetheless became impatient to be under pressure for now a discharge. Surgery and infectious disease, though both specialists felt it would be optimal for her to remain in-house at least 1-2 more days, they also did not believe it would be AGAINST MEDICAL ADVICE her to be discharged. As such she was transitioned to Augmentin, plan to complete 7 day course as noted above, additionally left with retained primrose drain the plan for surgical evaluation and likely removal in approximately 1 week. Contact information to surgeon's office was provided to patient and her mother who will recheck to surgeon's office on Wednesday to schedule follow-up appointment. Dr. Chris's office will be expecting this, as this was recommendation and discharge. Instructions for keeping wound site clean and indications for prompt medical consultation were discussed prior to discharge. Jose Manuel East DO Apr 03, 2017 13:58 Kris Bowles DO Apr 04, 2017 16:26
--- NOTE | 2017-04-03 15:12 | NUR ---
Social Work Note: Discharge Data& Assessment: Per pt is medically ready to discharge home via POV. María Chin is a 21 year old female admitted on 03/30/2017 for cellulites and diabetes. Per pt is medically improved and ready to discharge home. ID discharged pt on P.O medications. MD denies any further SW orders. SW met with pt and pt family at bedside to confirm discharge plan and assess for any unmet needs. Pt and pt family denies any other needs. No other discharge needs identified. All updated and agreeable to plan. Plan: Per pt is medically ready to discharge home via POV. Pt and pt family denies any other needs. No other discharge needs identified. All updated and agreeable to plan. ISAAC Reed
--- NOTE | 2017-04-03 16:22 | NUR ---
Discharge Pt discharged to home with transportation by her mother. Pt's IV dc'd intact, telemetry removed and tech notified. Pt's discharge instructions, follow up appointments and new prescriptions were reviewed. All questions were answered and pt voiced understanding. All belongings were gathered and transported with pt. Pt was escorted off unit to her mothers vehicle by RAUDEL.
== END 2017-04-03 15:30 | disposition home or self-care (01) | DRG 871 ==
LOC: SED 15:55 → MOC 20:10 → PCC 03-31 10:06
PROVIDERS: ADMIT Internal Medicine; ATTEND Internal Medicine
PROC: 0J990ZX Drainage of Buttock Subcutaneous Tissue and Fascia, Open Approach, Diagnostic (ICD-10-PCS; principal; 2017-03-31 18:15)
DX: A41.9 Sepsis, unspecified organism (principal); N17.0 Acute kidney failure with tubular necrosis; L05.01 Pilonidal cyst with abscess; E10.65 Type 1 diabetes mellitus with hyperglycemia; F17.200 Nicotine dependence, unspecified, uncomplicated; T36.8X5A Adverse effect of other systemic antibiotics, initial encounter; Z91.14 Patient's other noncompliance with medication regimen; Z79.4 Long term (current) use of insulin

== ENCOUNTER 2017-04-05 18:47 | Emergency (ER) | payer OTHER ==
[~2017-04-05] VITALS: Ht 165.1 cm; Wt 84.8 kg
[~2017-04-05 18:47] MED LIST: AMOX-366 PO; HYDR-4003 PO; INSU1CAR IH; INSU300I SQ
[2017-04-05 18:50] VITALS: BP 133/92; PULSE 77; RESP 16; O2SAT 99
--- NOTE | 2017-04-05 19:01 | ED.REPORT ---
HPI-General Illness Date of Service Apr 05, 2017 ED Provider: Dr. Resendiz Pt is a 21 year old female with a hx of DM presenting to the ED complaining of nausea, vomiting (some streaking) and diarrhea onset yesterday. No notable inciting factors, though she has been taking Augmentin. Has not tried anything for the nausea and vomiting yet; no notable alleviating or exacerbating factors. No blood in the stool. She recently had a pilonidal cyst removed, and was hospitalized for 5 days with sepsis discharged 2 days ago on Augmentin which she has not been able to keep down. Denies abdominal pain, chest pain, SOB , fever, chills, urinary symptoms, vaginal discharge or bleeding, or any other symptoms at this time. Nursing Notes Stated Complaint: NAUSEA, VOMITING, DIARRHEA, LABS, MEDICATION REACT Chief Complaint: Female Abdominal Pain Nursing Notes Reviewed: Yes Allergies: Coded Allergies: cinnamon (Verified Allergy, Severe, BLISTERS, 04/05/17) melon (Verified Allergy, Severe, throat closes, 04/05/17) codeine (Verified Adverse Reaction, Severe, Nausea,Vomiting, 04/05/17) oxycodone (Verified Adverse Reaction, Intermediate, Nausea,Vomiting, ) Scheduled Amoxicillin/Clav K 875-125 mg (Augmentin 875-125 mg) 1 Each Tablet 1 TABLET PO BID Insulin Glargine,Hum.rec.anlog (Toujeo Solostar) 300 Unit/Ml (1.5 Ml) Insuln.pen 20-40 SQ HS ON AVERAGE TAKES 20 UNITS. WILL TAKE 20-40 UNITS PER SLIDING SCALE DEPENDING ON FASTING BLOOD SUGAR. Insulin Regular, Human (Afrezza) 8 Unit (60)/12 Unit (30) Cart.w.dev 8 UNITS IH BIDWM LUNCH AND DINNER ONLY Scheduled PRN Hydrocodone-Acetaminophen 5-325 mg (Hydrocodone-Acetaminophen 5-325 mg) 1 Each Tablet 1 TABLET PO Q4H PRN PRN For Pain General Time Seen by MD: 19:01 Chief Complaint Vomiting Hx Obtained From: Patient Arrived By: Walk-in Sudden in Onset?: No Onset Occurred: Yesterday Symptom Duration: Since onset Severity: Current: No pain currently Severity: Maximum: No pain Recent Healthcare: Recent doctor visit, Recent hospitalization Similar Sx Previous: No Past Medical History Past Medical History Pilonidal abscess Type I Diabetes Mellitus Past Surgical History Denies Smoking History Current Every Day Smoker Social History Alcohol Use: "Social" Drug Use: Denies drug use Other Social History: Good social support Ambulatory Status Independent Review of Systems Full Review of Systems Constitutional: Denies: Chills, Fever Respiratory: Denies: Shortness of breath Cardiovascular: Denies: Chest pain GI: Reports: Diarrhea, Nausea, Vomiting, Denies: Abdominal pain Female: Denies: Hematuria, Urinary frequency, Urinary urgency, Vaginal bleeding - abnl, Vaginal discharge Complete sys rev & neg: except as marked. Physical Exam Nursing note and vitals reviewed. Constitutional: Well-developed, well-nourished. Not diaphoretic. Head: Normocephalic and atraumatic. Mouth/Throat: Oropharynx is clear. Mucus membranes dry. No oropharyngeal exudate. Eyes: EOM are normal. Pupils are equal, round, and reactive to light. Neck: Supple, no tracheal deviation. Cardiovascular: Normal rate, regular rhythm. Equal and intact distal pulses throughout. Pulmonary/Chest: Effort normal and breath sounds normal. No respiratory distress. Abdominal: Soft. No distension. Mild diffuse lower abdominal tenderness. No rebound, or guarding. Bowel sounds present. Musculoskeletal: Range of motion grossly intact, moving all extremities. No edema or tenderness appreciated. Neurological: AOx3. Grossly nonfocal exam. Strength and sensation intact and equal to bilateral upper and lower extremities. Skin: Warm and dry, no rashes or pallor appreciated. 2x4 cm wound with a drain in place on right superior buttock, 1x0.5 cm wound on the other side of drain on left superior buttock. Some purulent drainage from larger wound. Psychiatric: Appropriate mood and affect. Behavior appears normal. Vital Signs Vital Signs Date Time Temp Pulse Resp B/P Pulse Ox O2 Delivery O2 Flow Rate FiO2 04/06/17 00:21 37.1 78 16 124/76 99 Room Air 04/05/17 18:50 37.3 77 16 133/92 99 Room Air Initial VS: Reviewed Interpretation & Diagnostics Lab Results Interpretation Result Diagram: 04/05/17192404/05/171924 Test 04/05/17 19:25 04/05/17 20:02 White Blood Count 13.0th/mm3 (3.8-10.1) Red Blood Count 4.65mil/mm3 (3.90-5.20) Hemoglobin 8.7g/dL (12.0-15.6) Hematocrit 28.2% (35.0-46.0) Mean Corpuscular Volume 60.6fL (81-100) Mean Corpuscular Hemoglobin 18.7pg (27.0-35.0) Mean Corpuscular Hemoglobin Concent 30.9% (32.0-37.0) Red Cell Distribution Width 16.9% (12.3-15.4) Platelet Count 486bil/L (150-400) Neutrophils (%) (Auto) 67.1% (40-74) Lymphocytes (%) (Auto) 20.1% (14-46) Monocytes (%) (Auto) 8.3% (4-12) Eosinophils (%) (Auto) 3.6% (0-5) Basophils (%) (Auto) 0.5% (0-3) Prothrombin Time 10.8sec (8.1-12.5) Prothromb Time International Ratio 1.01ratio Sodium Level 138mEq/L (134-144) Potassium Level 4.1mEq/L (3.5-5.2) Chloride Level 99mEq/L (97-108) Carbon Dioxide Level 23mmol/L (18-29) Blood Urea Nitrogen 12mg/dL (6-20) Creatinine 1.11mg/dL (0.57-1.00) Estimat Glomerular Filtration Rate 91mL/min (>59) Glucose Level 117mg/dL (60-99) Lactic Acid Level 1.1mmol/L (0.4-2.0) Calcium Level 9.5mg/dL (8.5-10.1) Phosphorus Level 4.5mg/dL (2.5-4.9) Magnesium Level 1.4mg/dL (1.6-2.6) Total Bilirubin 0.3mg/dL (0.0-1.2) Aspartate Amino Transf (AST/SGOT) 32U/L (0-50) Alanine Aminotransferase (ALT/SGPT) 13U/L (0-32) Alkaline Phosphatase 78U/L (25-150) Troponin T < 0.010ug/L (0.0-0.011) Total Protein 7.5g/dL (6.4-8.4) Albumin 3.3g/dL (3.4-5.0) Lipase 27U/L (13-60) Procalcitonin 0.08ng/mL (0.00-0.08) Urine Color Yellow (YELLOW) Urine Appearance Clear (CLEAR,HAZY) Urine pH 5.5 (5.0-8.0) Urine Specific [place] 1.010 (1.003-1.035) Urine Protein Negativemg/dL (NEG,TRACE) Urine Glucose (UA) Negativemg/dL (NEGATIVE) Urine Ketones Negativemg/dL (NEGATIVE) Urine Occult Blood Small (NEGATIVE) Urine Nitrite Negative (NEGATIVE) Urine Bilirubin Negative (NEGATIVE) Urine Urobilinogen Normalmg/dL (NORMAL) Urine Leukocyte Esterase Small (NEGATIVE) Urine RBC 3-10/hpf (0-2) Urine WBC 6-10/hpf (0-5) Urine Epithelial Cells Moderate/hpf (NONE-MOD) Urine Crystals None seen (NONE SEEN) Urine Bacteria Few/hpf (NONE-FEW) Urine Hyaline Casts None/lpf (NONE) Urine Granular Casts None seen (NONE SEEN) Urine Waxy Casts None seen (NONE SEEN) Urine Red Blood Cell Casts None seen (NONE SEEN) Urine White Blood Cell Casts None seen (NONE SEEN) Urine Mucus Present (None Seen) Urine Trichomonas None seen (NONE SEEN) Urine Yeast None (NONE SEEN) Urinalysis Comment None Urine Culture Reflexed Indicated ECG Interpretation Time: 19:11 Interpreted by: ED physician Normal ECG Interpretation: Normal rate (76), Normal sinus rhythm X-Ray Chest Interpretation Chest Xray Interpretation: IMPRESSION: Blunting of the right costophrenic angle probably small right pleural effusion with adjacent atelectasis. Recommend clinical correlation Dictated by: Shaun Phelps M.D. on 04/05/2017 at 21:13 View: Portable, 1 view Interpretation / Wet Read by: Interpret - Radiologist CT Abd / Pelvis Interpretation IMPRESSION: Left adnexal focal fluid collection possibly cyst such as left ovarian (or parovarian) cyst although technically nonspecific. Further evaluation with dedicated pelvic ultrasound could be performed as clinically warranted. Cellulitis and soft tissue edema in the gluteal cleft, posterior to the tip of the sacrum with drain. No residual focal fluid collection Small bilateral pleural effusions with adjacent atelectasis. Dictated by: Shaun Phelps M.D. on 04/05/2017 at 21:17 Study type: Abdominal CT no contrast Interpretation / Wet Read by: Interpret - Radiologist US Focused non-OB Pelvis US TRANSVAGINAL: CONCLUSION: Unilocular cyst measuring 3.3 x 4.3 x 4.2 cm left ovary with free fluid in the left adnexa and cul-de-sac. This report was transmitted to the emergency room at 04/05/2017 - 11:06:58 PM PDT. Exam Performed by: Radiologist Exam Interpreted by: Radiologist Re-Eval/Medical Decision Med Decision/Clinical Course 21-year-old Female with a complex recent history including admission for sepsis presenting to the ED for 1 day of nausea, vomiting, and diarrhea. She has been unable to tolerate by mouth and has not been able to take her antibiotics today. Currently afebrile, nontoxic appearing. With her vomiting and recent admission, as well as some abdominal tenderness, decision made to obtain a CT scan of her abdomen. This was negative for any acute abnormality, however did demonstrate a left adnexal mass. An ultrasound was then ordered to characterize this mass to ensure no evidence of abscess or ovarian torsion; ultrasound demonstrates what appears to be a ovarian cyst and some free fluid. Laboratory studies reviewed, notable for WBC 13 from 9.9 2 days ago. Hgb improved. Lactic acid 1.1. Creatinine 1.11 down from 2.94 2 days ago. Magnesium 1.4, given Mag repletion here in the ER. Potassium 4.1. Procalcitonin 0.8. C. diff PCR ordered and sent, pending. Given Zofran with improvement in symptoms, able to tolerate by mouth. Given this, as well as her reassuring workup here in the emergency department, it seems reasonable to discharge home with very careful return precautions, PCP follow-up in the next several days. Patient agreeable to the plan as stated, no further questions. Time of Eval: 21:36 Patient Status: Condition improved Re-Evaluation/Progress Note: Discussed CT results and plan for ultrasound. Pt still having diarrhea but vomiting is resolved and she is tolerating PO. Time of Eval: 23:47 Patient Status: Condition improved Re-Evaluation/Progress Note: Discussed ultrasound results and plan for discharge. Pt understands and agrees with plan. Counseled Regarding: Diagnosis, Lab results, Need for follow-up, When/why to return to ED Discharge & Departure Primary Impression: Abdominal pain Abdominal location: lower abdomen, unspecified Qualified Code: R10.30 - Lower abdominal pain, unspecified Additional Impression: Ovarian cyst Laterality: left Qualified Code: N83.202 - Unspecified ovarian cyst, left side Disposition: Home Discharge Condition All VS Reviewed: Yes Condition: Improved Patient Instructions: Acute Abdominal Pain (ED), Ovarian Cyst (ED) Additional Instructions: You have been seen in the emergency department for evaluation of abdominal pain. At this time, your labs and your CT scan are reassuring and improved from when you were discharged. You do have a left sided ovarian cyst. Please read the attached instructions for more information. Return to the ED immediately if he develops any worsening symptoms, fever, chills, new drainage from your surgical site, vomiting, or if there is anything else of concern to you. Thank you for the opportunity to be a part of your care. Referrals: OTHER,PHYSICIAN (PCP) [facility] Scribe Attestation Portions of this note were transcribed by Estella Bacon. I, Dr. Resendiz personally performed the history, physical exam and medical decision-making; I reviewed and confirmed the accuracy of the information in the transcribed note. Signed by: Pasquale Mantilla, 04/05/2017 at 5104. copies to: [facility] Tj Resendiz MD Apr 05, 2017 19:01 ESTELLA BACON Apr 05, 2017 19:28
[2017-04-05 19:33] LABS: BASOPHILS % (AUTO) 0.5 % (0-3); EOSINOPHILS % (AUTO) 3.6 % (0-5); MONOCYTES % (AUTO) 8.3 % (4-12); Mean Corpuscular Hemoglobin 18.7 pg (27.0-35.0); Mean Corpuscular Volume 60.6 fL (81-100); NEUTROPHILS % (AUTO) 67.1 % (40-74); Platelet Count 486 bil/L (150-400)
[2017-04-05 19:54] LABS: INR 1.01 ratio
[2017-04-05 20:11] LABS: TROPONIN T < 0.010 ug/L (0.0-0.011)
[2017-04-05 20:20] LABS: APPEARANCE,URINE CLEAR (CLEAR,HAZY); COLOR,URINE YELLOW (YELLOW)
[2017-04-05 20:22] LABS: Lipase 27 U/L (13-60); Magnesium 1.4 mg/dL (1.6-2.6); Phosphorus 4.5 mg/dL (2.5-4.9)
[2017-04-05] MEDS ORDERED: Ondansetron 2 mg/mL 2 mL Inj IVPUSH ONE (20:25)
[2017-04-05 20:26] LABS: OCCULT BLOOD,URINE SMALL (NEGATIVE); PH,URINE 5.5 (5.0-8.0); UROBILINOGEN,URINE NORMAL (NORMAL)
[2017-04-05] MEDS ORDERED: 0.9% Sodium Chloride 1,000 ML IV ONE (20:30)
--- NOTE | 2017-04-05 21:16 | DRSVH ---
PROCEDURE: X-RAY CHEST ONE VIEW, PORTABLE ([id number]) INDICATIONS: n/v/d, recently septic TECHNIQUE: One view of the chest was acquired. COMPARISON: None. FINDINGS: Surgical changes and devices: None. Lungs and pleura: No pleural effusions or pneumothorax. Blunting of the right costophrenic angle. Mediastinum: Mediastinal contours appear normal. Heart size is normal. Bones and chest wall: No suspicious bony lesions. Overlying soft tissues appear unremarkable. IMPRESSION: Blunting of the right costophrenic angle probably small right pleural effusion with adjac ent atelectasis. Recommend clinical correlation Dictated by: Shaun Phelps M.D. on 04/05/2017 at 21:13 Approved by: Shaun Phelps M.D. on 04/05/2017 at 21:15
--- NOTE | 2017-04-05 21:27 | DRSVH ---
PROCEDURE: CT ABDOMEN AND PELVIS WITHOUT CONTRAST ([id number]) INDICATIONS: recent intraabdominal abscess, sepsis, now n/v/d TECHNIQUE: Noncontrast 5 mm thick sections acquired from the diaphragms to the symphysis. 5 mm coronal and sagi ttal reformats were then performed. For radiation dose reduction, the following was used: automated exposure control, adjustment of mA and/or kV according to patient size. COMPARISON: None. FINDINGS: Image quality: Excellent. ABDOMEN: Lung bases: Small bilateral pleural effusions with adjacent atelectasis Solid organs: Liver and spleen are normal in size. Gallbladder negative. Pancreas is normal in con tours. No adrenal nodules. Kidneys are normal in size, without hydronephrosis or nephrolithiasis. Peritoneum and bowel: Unenhanced bowel loops demonstrate normal wall thickness and caliber. No free fluid or air. Normal appendix Nodes and vessels: No retroperitoneal or mesenteric adenopathy by size criteria. Aorta and inferior vena cava are normal in caliber. Miscellaneous: No ventral hernias. PELVIS: Genitourinary: Bladder wall thickness is normal. Within the left adnexa there is a 4.2 x 4.3 cm wate r attenuation focus on image 71 series 2, incompletely evaluated in the absence of IV contrast. Miscellaneous: No inguinal hernias or adenopathy. A surgical drain is seen in the soft tissues of t he gluteal cleft posterior to the tip of the sacrum/coccyx. No residual focal fluid collection is see n. Bones: No suspicious bony lesions. No vertebral body compression fractures. IMPRESSION: Left adnexal focal fluid collection possibly cyst such as left ovarian (or parovarian) cyst although technically nonspecific. Further evaluation with dedicated pelvic ultrasound could be performed as cl inically warranted. Cellulitis and soft tissue edema in the gluteal cleft, posterior to the tip of the sacrum with drain. No residual focal fluid collection Small bilateral pleural effusions with adjacent atelectasis. Dictated by: Shaun Phelps M.D. on 04/05/2017 at 21:17 Approved by: Shaun Phelps M.D. on 04/05/2017 at 21:25
[2017-04-05] MEDS ORDERED: Magnesium Sulf 2 Gm/50mL Water 2 GM in IV Premix 1 EACH IV ONE (21:30)
[2017-04-06] MEDS ORDERED: _Ondansetron ODT 4 mg Tablet PO PRN
[2017-04-06 00:21] VITALS: BP 124/76; PULSE 78; RESP 16; O2SAT 99
--- NOTE | 2017-04-06 07:13 | DRSVH ---
PROCEDURE: US PELVIC SONOGRAM + TRANSVAGINAL SONOGRAM INDICATIONS: L adnexal mass on CT, n/v/d TECHNIQUE: Real-time scanning was performed of the pelvic organs, with image documentation. Additional endovagi nal scanning was necessary due to incomplete visualization of the adnexal and endometrial structures by transabdominal scanning. COMPARISON: [facility], CT from 04/05/2017. FINDINGS: (orthogonal measurements) Uterus size: 3.2 x 5.3 x 7.4 cm Endometrium thickness: 4 mm Right ovary size: 2.1 x 2.0 x 2.1 cm Left ovary size: 3.7 x 5.3 x 6.0 cm Transabdominal scanning: Limited scanning through the kidneys shows no hydronephrosis. No pathologi c free abdominal or pelvic fluid. Endovaginal scanning: Uterus: Uterus is normal in size and appearance. Endometrium is within normal physiologic limits. Ovaries: There is a 3.3 x 4.3 x 4.2 cm simple cyst in the left ovary. Right ovary is ultrasonographic ally normal. . There is mild less moderate free fluid in the pelvis. IMPRESSION: Simple left ovarian cyst with free fluid in the pelvis. This finding may represent a hemorrhagic cyst which has ruptured. Rupture of a simple cyst with pelvic fluid is also possible. Recommend clinical followup resolution. Given the patient's age, no dedicated radiographic followup is needed if finding s resolve clinically. Dictated by: Van Calero M.D. on 04/06/2017 at 7:01 Approved by: Van Calero M.D. on 04/06/2017 at 7:06
== END 2017-04-06 00:23 | disposition home or self-care (01) ==
LOC: SED 18:47
DX: R10.30 Lower abdominal pain, unspecified (principal); N83.202 Unspecified ovarian cyst, left side; R19.7 Diarrhea, unspecified; E10.9 Type 1 diabetes mellitus without complications; F17.200 Nicotine dependence, unspecified, uncomplicated; Z79.4 Long term (current) use of insulin; Z88.5 Allergy status to narcotic agent; Z91.02 Food additives allergy status; Z91.018 Allergy to other foods
CPT/HCPCS: 36415; 71010; 74176; 76830; 76856; 80053; 81000; 81025; 83605; 83690; 83735; 84100; 84145; 84484; 85025; 85610; 87040; 87086; 93005; 96361; 96374; 96375; 99285; J2405; J7030

== ENCOUNTER 2017-06-24 12:25 | Emergency (ER) | payer OTHER ==
[2017-06-24 12:29] VITALS: BP 140/97; PULSE 110; RESP 18; O2SAT 100
--- NOTE | 2017-06-24 12:46 | ED.REPORT ---
HPI-Rash / Abscess Date of Service Jun 24, 2017 ED Provider: History of Present Illness: pilondial cyst has returned. present for 2 days. primary care is [facility] in [place]. May be . denies nausea or vomiting. 01/11, denies warm soaks. has had 3 positive preg tests at home last week. lmp 05/21/2017 Nursing Notes Stated Complaint: CYST INFECTION W/POSS PREGANCY Chief Complaint: General Complaint Nursing Notes Reviewed: Yes Allergies: Coded Allergies: amoxicillin (Verified Allergy, Severe, 06/24/17) cinnamon (Verified Allergy, Severe, BLISTERS, 04/05/17) clavulanic acid (Verified Allergy, Severe, 06/24/17) melon (Verified Allergy, Severe, throat closes, 04/05/17) codeine (Verified Adverse Reaction, Severe, Nausea,Vomiting, 04/05/17) oxycodone (Verified Adverse Reaction, Intermediate, Nausea,Vomiting, ) Scheduled Glipizide (Glipizide) 5 Mg Tablet Unknown Dose PO DAILY Insulin Glargine,Hum.rec.anlog (Toujeo Solostar) 300 Unit/Ml (1.5 Ml) Insuln.pen 20-40 SQ HS ON AVERAGE TAKES 20 UNITS. WILL TAKE 20-40 UNITS PER SLIDING SCALE DEPENDING ON FASTING BLOOD SUGAR. Insulin Regular, Human (Afrezza) 8 Unit (60)/12 Unit (30) Cart.w.dev 8 UNITS IH BIDWM LUNCH AND DINNER ONLY General Time Seen by MD: 12:46 Chief Complaint Abscess, Tender/swollen area Hx Obtained From: Patient Onset Occurred: 2 days ago Symptom Duration: Since onset Location: : Buttock Past Medical History Past Medical History Pilonidal abscess 04/2017 Type I Diabetes Mellitus Reports: Diabetes mellitus, Denies: Asthma Past Surgical History Denies Smoking History Current Every Day Smoker (1 pack a day for 1 year ) Social History Alcohol Use: "Social" Drug Use: Denies drug use Other Social History: Good social support Occupation lives witrh boyfriend, no work or school 06/24/2017 Ambulatory Status Independent Review of Systems Basic Review of Systems : No dysuria, No frequency Endocrine: No cold intolerance, No heat intolerance, No weight gain, No weight loss Physical Exam Initial Vital Signs Vital Signs (First) Date Time Temp Pulse Resp B/P Pulse Ox O2 Delivery O2 Flow Rate FiO2 06/24/17 12:29 36.6 110 18 140/97 100 Room Air Initial VS: Reviewed, Vital signs abnormal Head / Eyes: Atraumatic, Normocephalic, PERRL ENT: Mucous membranes moist, Conjunctiva normal, No scleral icterus Neck: Supple, Non-tender, Full range of motion Respiratory: Breath sounds normal, Clear to auscultation, No respiratory distress Cardiovascular: Regular rate & rhythm, Heart sounds normal, Intact distal pulses Abdomen / GI: Soft, Non-tender, No guarding, No rebound, No distention Back: No CVA tenderness Lymphatic: No lymphadenopathy Extremities: Vascular intact, Neuro intact, No swelling, No tenderness Neurologic: Alert, Oriented, Nonfocal Psychiatric: Mood/affect normal, Behavior normal, Normal thought content General/Constitutional: Awake, Alert, No acute distress, Well appearing, Well developed, Well hydrated, Well nourished, Cooperative, Not toxic appearing Color / Condition: Positive: Erythema localized Rash / Lesion Notes: right buttocks is hard. old scar is red, mild erthyma on left surgery site on buttocks Respiratory / Chest: Atraumatic, Breath sounds NL, Breath sounds = bilat, No respiratory distress Cardiovascular: Heart rate NL, Regular rhythm, Heart sounds NL Interpretation & Diagnostics Interpretation & Diagnostics: PROCEDURE: CT PELVIS WITH CONTRAST ([id number]) INDICATIONS: bilateral pilondial abscess ? tracking TECHNIQUE: After the administration of intravenous contrast, 5 mm thick sections acquired from the iliac crests to the symphysis. 5 mm coronal and sagittal reformats were acquired. For radiation dose reduction, the following was used: automated exposure control, adjustment of mA and/or kV according to patient size. COMPARISON: None. FINDINGS: Image quality: Excellent. Peritoneum and bowel: Bowel loops demonstrate normal wall thickness and caliber. No free fluid or air. Genitourinary: Bladder wall thickness is normal. Uterus and ovaries are grossly normal. Nodes and vessels: No iliac, pelvic, or inguinal adenopathy by size criteria. Iliac vessels demonstrate normal size and enhancement. Bones: No suspicious bony lesions. Miscellaneous: No inguinal hernias. IMPRESSION: 1. At the site of previous surgery, over the dorsal aspect of the sacrum posteriorly, there is now overlying skin thickening and what appears to be a spherical area in the subcutaneous tissues measuring 3 x 2 x 2.5 cm. Whether this is an abscess or phlegmonous I cannot tell on these images. 2. No abnormality is seen within the pelvis. Dictated by: Estevan Canseco M.D. on 06/24/2017 at 17:09 Approved by: Estevan Canseco M.D. on 06/24/2017 at 17:17 Lab Results Interpretation Result Diagram: 06/24/17 1325 06/24/17 1325 Test 06/24/17 13:25 06/24/17 14:06 White Blood Count 12.8th/mm3 (3.8-10.1) Red Blood Count 5.53mil/mm3 (3.90-5.20) Hemoglobin 11.2g/dL (12.0-15.6) Hematocrit 35.1% (35.0-46.0) Mean Corpuscular Volume 63.5fL (81-100) Mean Corpuscular Hemoglobin 20.3pg (27.0-35.0) Mean Corpuscular Hemoglobin Concent 31.9% (32.0-37.0) Red Cell Distribution Width 16.8% (12.3-15.4) Platelet Count 339bil/L (150-400) Neutrophils (%) (Auto) 71.5% (40-74) Lymphocytes (%) (Auto) 20.2% (14-46) Monocytes (%) (Auto) 6.4% (4-12) Eosinophils (%) (Auto) 1.3% (0-5) Basophils (%) (Auto) 0.4% (0-3) Sodium Level 133mEq/L (134-144) Potassium Level 4.0mEq/L (3.5-5.2) Chloride Level 97mEq/L (97-108) Carbon Dioxide Level 20mmol/L (18-29) Blood Urea Nitrogen 11mg/dL (6-20) Creatinine 0.55mg/dL (0.57-1.00) Estimat Glomerular Filtration Rate 204mL/min (>59) Glucose Level 395mg/dL (60-99) Lactic Acid Level 2.0mmol/L (0.4-2.0) Calcium Level 9.2mg/dL (8.5-10.1) Total Bilirubin 0.3mg/dL (0.0-1.2) Aspartate Amino Transf (AST/SGOT) 19U/L (0-50) Alanine Aminotransferase (ALT/SGPT) 17U/L (0-32) Alkaline Phosphatase 90U/L (25-150) Total Protein 7.6g/dL (6.4-8.4) Albumin 3.8g/dL (3.4-5.0) HCG Beta Subunit < 0.5mIU/mL Hold Urine Received (Received) US Soft Tissue/Musculoskeletal PROCEDURE: US EXTREMITY SONOGRAM LIMITED ([id number]) INDICATIONS: pilondial abscess bilateral TECHNIQUE: Real-time scanning was performed of the gluteal cleft, with image documentation. COMPARISON: [facility], US, US EXTREMITY LTD, 03/31/2017, 11:25. [facility], US, US PELVIC+TRANSVAG, 04/05/2017, 22:05. [facility], CT, CT ABD PELVIS WO CON, 04/05/2017, 20:26. FINDINGS: Complex, thick walled fluid collection is present involving the gluteal cleft measuring 5.0 x 3.0 x 3.5 cm. Fluid collection is roughly 4 mm deep to the skin surface. IMPRESSION: Complex thick walled fluid collection involving the gluteal cleft suspicious for abscess. Dictated by: Tico Ocampo [facility] Interpreted: Divina Tineo MD on 06/24/2017 at 13:53 Approved by: Divina Tineo M.D. on 06/24/2017 at 17:12 Re-Eval/Medical Decision Med Decision/Clinical Course Patient does not want abscess opened. Desires to try antibiotics and warm showers. Discussed she could be admitted and it would be opened and followed for a few days in the hospital, she is refusing. Dr. Resendiz explained options also. Discussed with Dr. Carbajal. he recommends opening, either in surgery , the ER or general surgery office. Provided antibiotics and pain medications. Encouraged to return if she changes her mind. No sign of sepis at this point Discharge & Departure Impression: Primary Impression: Pilonidal abscess Additional Impression: Uncontrolled diabetes mellitus Disposition: AGAINST MEDICAL ADVICE Patient Instructions: Abscess (ED) Additional Instructions: Your wbc is elevated at 12.8. Please work on controlling your blood sugar.The CT shows a large pilondial abscess. This should be opened in surgery and then followed with packing. At this time, you are refusing admission to the hospital. You are being started on antibiotics, keflex and bactrim. You can use hydrocodone for pain. Do warm packs and showers to the site. At this time you are not . Please return with fever, vomiting or any other concerns. I am sorry this is happening again. Please call general surgery, Dr. Chris for follow up. Referrals: Erin Chris MD EDSupervising Provider for APC: Tj Resendiz MD Attending Statement I saw and evaluated the patient in conjunction with the [facility]. I agree with the plan and findings as documented above. In brief, 21 year-old female presenting to the ED for evaluation of a pilonidal cyst/abscess. Well appearing, no acute distress. Nonlabored respirations. Good peripheral perfusion. Concern that she may need a procedure in the operating room given CT findings above; discussed with surgery. Patient has a leukocytosis and has had complications from similar issues in the past. High risk. Recommended admission as per above on surgery's recommendations; patient not wanting to be admitted. Explained the risks of leaving against medical advice, including deterioration, sepsis, disseminated infection/bacteremia, . Explained that abscesses do not often respond to antibiotics and need drainage. Her particular abscess is not amenable to I&D in the emergency department at this time. Patient insists on leaving despite the risks. Explained that she could return at any time if she changed her mind and that we will start her on antibiotics and she should call tomorrow to make an appointment with surgery. copies to: Erin Chris MD, Sue [facility] Jun 24, 2017 12:46 Tj Resendiz MD Jun 24, 2017 16:50
[2017-06-24] MEDS ORDERED: 0.9% Sodium Chloride 1,000 ML IV ONE (13:15)
[2017-06-24 13:31] LABS: EOSINOPHILS % (AUTO) 1.3 % (0-5)
[2017-06-24 13:36] LABS: BASOPHILS % (AUTO) 0.4 % (0-3); MONOCYTES % (AUTO) 6.4 % (4-12); Mean Corpuscular Hemoglobin 20.3 pg (27.0-35.0); Mean Corpuscular Volume 63.5 fL (81-100); NEUTROPHILS % (AUTO) 71.5 % (40-74); Platelet Count 339 bil/L (150-400)
[2017-06-24] MEDS ORDERED: GLPZ5T PO (14:03)
--- NOTE | 2017-06-24 17:14 | DRSVH ---
PROCEDURE: US EXTREMITY SONOGRAM LIMITED ([id number]) INDICATIONS: pilondial abscess bilateral TECHNIQUE: Real-time scanning was performed of the gluteal cleft, with image documentation. COMPARISON: [facility], US, US EXTREMITY LTD, 03/31/2017, 11:25. [facility], US, US PELVIC+TRANSVAG, 04/05/2017, 22:05. [facility], CT, CT ABD PELVIS WO CON, 04/05/20 17, 20:26. FINDINGS: Complex, thick walled fluid collection is present involving the gluteal cleft measuring 5.0 x 3.0 x 3.5 cm. Fluid collection is roughly 4 mm deep to the skin surface. IMPRESSION: Complex thick walled fluid collection involving the gluteal cleft suspicious for abscess. Dictated by: Tico PERSON Interpreted: Divina Tineo MD on 06/24/2017 at 13:53 Approved by: Divina Tineo M.D. on 06/24/2017 at 17:12
--- NOTE | 2017-06-24 17:19 | DRSVH ---
PROCEDURE: CT PELVIS WITH CONTRAST ([id number]) INDICATIONS: bilateral pilondial abscess ? tracking TECHNIQUE: After the administration of intravenous contrast, 5 mm thick sections acquired from the iliac crests to the symphysis. 5 mm coronal and sagittal reformats were acquired. For radiation dose reduction, the following was used: automated exposure control, adjustment of mA and/or kV according to patient size. COMPARISON: None. FINDINGS: Image quality: Excellent. Peritoneum and bowel: Bowel loops demonstrate normal wall thickness and caliber. No free fluid or a ir. Genitourinary: Bladder wall thickness is normal. Uterus and ovaries are grossly normal. Nodes and vessels: No iliac, pelvic, or inguinal adenopathy by size criteria. Iliac vessels demonst rate normal size and enhancement. Bones: No suspicious bony lesions. Miscellaneous: No inguinal hernias. IMPRESSION: 1. At the site of previous surgery, over the dorsal aspect of the sacrum posteriorly, there is now ov erlying skin thickening and what appears to be a spherical area in the subcutaneous tissues measuring 3 x 2 x 2.5 cm. Whether this is an abscess or phlegmonous I cannot tell on these images. 2. No abnormality is seen within the pelvis. Dictated by: Estevan Canseco M.D. on 06/24/2017 at 17:09 Approved by: Estevan Canseco M.D. on 06/24/2017 at 17:17
== END 2017-06-24 18:26 | disposition left against medical advice (07) ==
LOC: SED 12:25
DX: L05.01 Pilonidal cyst with abscess (principal); E10.9 Type 1 diabetes mellitus without complications; F17.200 Nicotine dependence, unspecified, uncomplicated; Z79.4 Long term (current) use of insulin; Z88.0 Allergy status to penicillin; Z88.5 Allergy status to narcotic agent; Z88.8 Allergy status to other drugs, medicaments and biological substances
CPT/HCPCS: 36415; 72193; 76882; 80053; 81025; 83605; 84702; 85025; 87040; 96360; 99285; J7030; Q9967